=== PATIENT | female | born 1965 | race Caucasian/White ===

== ENCOUNTER 2017-12-24 20:53 | Emergency (ER) | payer SELFPAY ==
[2017-12-24 21:18] LABS: BASOPHILS # (AUTO) 0.1 10^3/uL (0.0-0.1); BASOPHILS % (AUTO) 1.1 %; EOSINOPHILS % (AUTO) 0.2 %; HGB - HEMOGLOBIN 15.6 g/dL (12.0-16.0); LYMPHOCYTES # (AUTO) 2.6 10^3/uL (1.5-3.5); LYMPHOCYTES % (AUTO) 38.8 %; MEAN CORPUSCULAR HEMOGLOBIN 30.6 pg (27.0-31.0); MEAN CORPUSCULAR HGB CONC 33.7 g/dL (32.0-36.0); MEAN CORPUSCULAR VOLUME 90.9 fL (81.0-99.0); MEAN PLATELET VOLUME 8.5 fL (7.9-10.8); MONOCYTES # (AUTO) 0.4 10^3/uL (0.0-1.0); MONOCYTES % (AUTO) 6.2 %; NEUTROPHILS # (AUTO) 3.6 10^3/uL (1.5-6.6); NEUTROPHILS % (AUTO) 53.7 %; PLT - PLATELET COUNT 157 10^3/uL (130-450); RED BLOOD COUNT 5.11 10^6/uL (4.20-5.40); RED CELL DISTRIBUTION WIDTH 13.4 % (12.0-15.0); WHITE BLOOD COUNT 6.7 x10^3/uL (4.8-10.8)
[2017-12-24 21:30] LABS: ALBUMIN 4.3 g/dL (3.2-5.5); ALBUMIN/GLOBULIN RATIO 1.2 (1.0-2.2); BILIRUBIN,TOTAL 0.7 mg/dL (0.2-1.0); CALCIUM 9.4 mg/dL (8.5-10.3); CREATININE 0.5 mg/dL (0.4-1.0)
--- NOTE | 2017-12-24 21:43 | XRAY Report ---
EXAM: CHEST RADIOGRAPHY EXAM DATE: 12/24/2017 09:35 PM. CLINICAL HISTORY: Soa/cough/chest pressure. COMPARISON: None. TECHNIQUE: 2 views. FINDINGS: Lungs/Pleura: No localized infiltrate, consolidation, effusion, or pneumothorax. Mediastinum: Heart and mediastinal contours are unremarkable. Upper lobe vessels not distended. Other: None. IMPRESSION: Normal 2-view chest radiography. [facility] Referring Provider Line: [phone] SITE ID: [id number]
[2017-12-24] MEDS ORDERED: SODIUM CHLORIDE 0.9% 1,000 ML IV STA ×2 (21:57→23:35)
--- NOTE | 2017-12-24 21:57 | ED Physician Documentation ---
History of Present Illness - Stated complaint Stated Complaint: SOA - Chief complaint Chief Complaint: Cardiac - History obtained from History obtained from: Patient - History of Present Illness Timing: Enter time (18:00), Today Pain level now: 0 Improved by: no ameliorating factors Worsened by: no exacerbating factors - Additonal information Additional information: while at dinner this evening, 6 PM, patient had sudden onset of feeling "hot, sweaty" (per patient), dyspneic, and nausea. mild chest discomfort. Symptoms have resolved [employer]. She notes recent right ear piercing which has become red and swollen Review of Systems Constitutional: reports: Sweats. denies: Fever (did not take temperature, but did not feel like she had a fever), Chills Ears: reports: Ear pain (right ear swelling, pain) Throat: denies: Sore throat Respiratory: reports: Dyspnea (resolved). denies: Cough GI: reports: Nausea. denies: Abdominal Pain, Vomiting : denies: Dysuria, Frequency Musculoskeletal: reports: Reviewed and negative PD PAST MEDICAL HISTORY - Past Medical History Past Medical History: No - Past Surgical History Past Surgical History: No - Present Medications Home Medications: Ambulatory Orders Medication Instructions Recorded Confirmed Aspirin 81 mg PO 12/24/17 Multivitamin [Multivitamins] 1 each PO 12/24/17 Clindamycin HCl [Clindamycin 300MG 300 mg PO Q6HR #27 capsule 12/25/17 CAP] metFORMIN [Glucophage] 500 mg PO DAILY #30 tablet 12/25/17 - Allergies Allergies/Adverse Reactions: Allergies Allergy/AdvReac Type Severity Reaction Status Date / Time Sulfa (Sulfonamide Allergy Hives Verified 12/24/17 21:06 Antibiotics) - Living Situation Living Arrangement: reports: At home PD ED PE NORMAL - Vitals Vital signs reviewed: Yes - General General: Alert and oriented X 3, No acute distress, Well developed/nourished - HEENT HEENT: Moist mucous membranes - Neck Neck: Supple, no meningeal sign - Cardiac Cardiac: RRR, No murmur, No gallop, No rub - Respiratory Respiratory: No respiratory distress, Clear bilaterally - Abdomen Abdomen: Soft, Non tender - Derm Derm: Normal color, Warm and dry - Extremities Extremities: No edema - Neuro Neuro: Alert and oriented X 3 Results - Vitals Vitals: Vital Signs - 24 hr 12/24/17 12/25/17 20:59 01:39 Temperature 37.1 C 36.6 C Heart Rate 119 H 93 Respiratory 18 16 Rate Blood Pressure 128/109 H 117/75 O2 Saturation 98 96 Oxygen O2 Source Room air - EKG (time done) No standard instances Rate: Rate (enter#), Tachy (111) Rhythm: Sinus tachycardia [place]: Normal Intervals: Normal [place] QRS: Normal Ischemia: Normal ST segments - Labs Labs: Laboratory Tests 12/24/17 12/24/17 12/24/17 21:12 21:12 21:12 WBC 6.7 RBC 5.11 Hgb 15.6 Hct 46.4 MCV 90.9 MCH 30.6 MCHC 33.7 RDW 13.4 Plt Count 157 MPV 8.5 Neut # 3.6 Lymph # 2.6 [place] # 0.4 Eos # 0.0 Baso # 0.1 Absolute Nucleated RBC 0.00 Nucleated RBC % 0.1 Sodium 132 L Potassium 3.5 Chloride 96 L Carbon Dioxide 25 Anion Gap 11.0 BUN 11 Creatinine 0.5 Estimated GFR (MDRD) 131 Glucose 406 H Glycated Hemoglobin Estim Average Glucose Calcium 9.4 Total Bilirubin 0.7 AST 51 H ALT 48 Alkaline Phosphatase 91 Troponin I < 0.04 Total Protein 8.0 Albumin 4.3 Globulin 3.7 Albumin/Globulin Ratio 1.2 Lipase 37 Urine Color Urine Clarity Urine pH Ur Specific [place] Urine Protein Urine Glucose (UA) Urine Ketones Urine Occult Blood Urine Nitrite Urine Bilirubin Urine Urobilinogen Ur Leukocyte Esterase Ur Microscopic Review Urine Culture Comments Serum Ketones 12/24/17 12/24/17 12/24/17 21:12 21:12 22:05 WBC RBC Hgb Hct MCV MCH MCHC RDW Plt Count MPV Neut # Lymph # [place] # Eos # Baso # Absolute Nucleated RBC Nucleated RBC % Sodium Potassium Chloride Carbon Dioxide Anion Gap BUN Creatinine Estimated GFR (MDRD) Glucose Glycated Hemoglobin 13.1 H Estim Average Glucose 329 H Calcium Total Bilirubin AST ALT Alkaline Phosphatase Troponin I Total Protein Albumin Globulin Albumin/Globulin Ratio Lipase Urine Color STRAW Urine Clarity CLEAR Urine pH 6.5 Ur Specific [place] <=1.005 Urine Protein NEGATIVE Urine Glucose (UA) >=1000 H Urine Ketones NEGATIVE Urine Occult Blood NEGATIVE Urine Nitrite NEGATIVE Urine Bilirubin NEGATIVE Urine Urobilinogen 0.2 (NORMAL) Ur Leukocyte Esterase NEGATIVE Ur Microscopic Review NOT INDICATED Urine Culture Comments NOT INDICATED Serum Ketones NEGATIVE - Rads (name of study) chest xray Radiology: Prelim report reviewed, See rad report PD MEDICAL DECISION MAKING - ED course Complexity details: reviewed results, re-evaluated patient, considered differential, d/w patient Departure - Departure Disposition: 01 Home, Self Care Clinical Impression: Hyperglycemia, Cellulitis of ear Condition: Good Instructions: ED Infec Skin Cellulitis, ED Diet Diabetic, ED Hyperglycemia New Susp Diabetes Follow-Up: [facility] [place] [Provider Group] [facility] [Provider Group] Rosita Carpenter ARNP [Primary Care Provider] - Prescriptions: Clindamycin HCl [Clindamycin 300MG CAP] 300 mg PO Q6HR #27 capsule metFORMIN [Glucophage] 500 mg PO DAILY #30 tablet Discharge Date/Time: 12/25/17 01:40
[2017-12-24] MEDS ORDERED: CLINDAMYCIN 600 MG/50 ML 50 ML IV ONE (22:14)
[2017-12-24 22:18] LABS: BILIRUBIN,URINE NEGATIVE (NEGATIVE); GLUCOSE, URINE (UA) >=1000 mg/dL (NEGATIVE); KETONES,URINE (UA) NEGATIVE (NEGATIVE); LEUKOCYTE ESTERASE, URINE NEGATIVE (NEGATIVE); NITRITE,URINE NEGATIVE (NEGATIVE); OCCULT BLOOD,URINE NEGATIVE (NEGATIVE); PH,URINE 6.5 PH (5.0-7.5); PROTEIN,URINE NEGATIVE (NEGATIVE); UROBILINOGEN,URINE 0.2 (NORMAL) E.U./dL (NORMAL)
[2017-12-24 22:19] LABS: CLARITY,URINE CLEAR (CLEAR)
[2017-12-24 22:28] LABS: HB2 TOTAL 17.3 g/dL; HEMOGLOBIN A1C 2.07 g/dL; HEMOGLOBIN A1C % 13.1 % (4.6-6.2)
[2017-12-24] MEDS ORDERED: INSULIN REGULAR HUMAN 100 UNIT/1 ML 10 ML MDV SUBQ STA (23:35)
[2017-12-25] MEDS ORDERED: metFORMIN 500 MG TABLET PO STA (01:08)
[2017-12-25 01:40] VITALS: BP 117/75
== END 2017-12-25 01:40 | disposition home or self-care (01) ==
LOC: ED 20:53
DX: R73.9 Hyperglycemia, unspecified (principal); H60.11 Cellulitis of right external ear; R07.89 Other chest pain; R06.09 Other forms of dyspnea
CPT/HCPCS: 36415; 71046; 80053; 81003; 82009; 83036; 83690; 84484; 85025; 93005; 96361; 96365; 96372; 99283; 99284; A9270; J1815; 81001; 87086

== ENCOUNTER 2017-12-30 19:47 | Emergency (ER) | payer SELFPAY ==
[2017-12-30 19:57] VITALS: BP 145/94
--- NOTE | 2017-12-30 20:21 | ED Physician Documentation ---
History of Present Illness - Stated complaint Stated Complaint: POSS OD - Chief complaint Chief Complaint: General - History obtained from History obtained from: Patient - History of Present Illness Timing: Other (Fairly new diagnosis of diabetes. She is taking 1 tablet of metformin twice daily and soon will be transitioning to 2 tablets at night but inadvertently took 2 tonight. She has no symptoms per se.) Review of Systems Eyes: denies: Photophobia Ears: denies: Loss of hearing, Ear pain Nose: denies: Rhinorrhea / runny nose, Congestion PD PAST MEDICAL HISTORY - Past Surgical History Past Surgical History: No - Present Medications Home Medications: Ambulatory Orders Medication Instructions Recorded Confirmed Aspirin 81 mg PO 12/24/17 Multivitamin [Multivitamins] 1 each PO 12/24/17 Clindamycin HCl [Clindamycin 300MG 300 mg PO Q6HR #27 capsule 12/25/17 CAP] metFORMIN [Glucophage] 500 mg PO DAILY #30 tablet 12/25/17 - Allergies Allergies/Adverse Reactions: Allergies Allergy/AdvReac Type Severity Reaction Status Date / Time Sulfa (Sulfonamide Allergy Hives Verified 12/30/17 19:57 Antibiotics) - Social History Does the pt smoke?: Yes Does the pt drink ETOH?: Yes Does the pt have substance abuse?: No - Immunizations Immunizations are current?: Yes PD ED PE NORMAL - Vitals Vital signs reviewed: Yes - General General: Alert and oriented X 3, No acute distress - HEENT HEENT: PERRL, EOMI - Neuro Neuro: Alert and oriented X 3, Normal speech Results - Vitals Vitals: Vital Signs - 24 hr 12/30/17 19:50 Temperature 36.3 C L Heart Rate 105 H Respiratory 18 Rate Blood Pressure 145/94 H O2 Saturation 95 Oxygen O2 Source Room air PD MEDICAL DECISION MAKING - ED course ED course: We discussed that with the mechanism of metformin and the dosing range and her current blood sugar she is in no danger of significant hypoglycemia tonight. Departure - Departure Disposition: 01 Home, Self Care Clinical Impression: Medication overdose Qualifiers: Encounter type: initial encounter Injury intent: accidental or unintentional Qualified Code(s): T50.901A - Poisoning by unspecified drugs, medicaments and biological substances, accidental (unintentional), initial encounter Condition: Good Record reviewed to determine appropriate education?: Yes Comments: As discussed, based on the mechanism of metformin and its dosing range you are in no danger having taken 2 pills instead of 1.
== END 2017-12-30 20:26 | disposition home or self-care (01) ==
LOC: ED 19:47
DX: T38.3X1A Poisoning by insulin and oral hypoglycemic [antidiabetic] drugs, accidental (unintentional), initial encounter (principal); E11.9 Type 2 diabetes mellitus without complications; Z79.82 Long term (current) use of aspirin; F17.200 Nicotine dependence, unspecified, uncomplicated
CPT/HCPCS: 99282; 99283

== ENCOUNTER 2018-03-30 10:09 | Outpatient (CLI) | payer OTHER ==
[2018-03-30 18:25] LABS: HB2 TOTAL 16.3 g/dL; HEMOGLOBIN A1C 0.71 g/dL; HEMOGLOBIN A1C % 6.1 % (4.6-6.2)
== END 2018-03-30 10:10 | disposition home or self-care (01) ==
LOC: LAB.F 10:09
PROVIDERS: ATTEND Nurse Practitioner Family
DX: E11.9 Type 2 diabetes mellitus without complications (principal)
CPT/HCPCS: 36415; 83036

== ENCOUNTER 2018-04-15 14:47 | Outpatient (CLI) | payer OTHER ==
--- NOTE | 2018-04-16 14:34 | Mammography Report ---
Procedure Date: 04/15/2018 Accession Number: [id number] / [id number] Procedure: MGS - Screening Mammo Dig Bilat CPT Code: FULL RESULT: EXAM: Screening Mammo Dig Bilat DATE: 04/15/2018 3:03 PM CLINICAL HISTORY: 52-year-old for screening TECHNIQUE: Bilateral CC and MLO views were obtained. COMPARISON: 08/07/2009, 08/10/2008 FINDINGS: The breasts demonstrate scattered fibroglandular densities bilaterally. A few punctate, typically benign calcifications are present. No suspicious masses, clustered microcalcifications, or regions of architectural distortion are identified. IMPRESSION: Benign findings RECOMMENDATION: Routine annual screening unless otherwise clinically indicated. BIRADS CATEGORY 2: Benign findings STANDARD QUALIFYING STATEMENTS: 1. This examination was reviewed with the aid of Computer-Aided Detection (CAD). 2. A negative or benign imaging report should not delay biopsy if clinically suspicious findings are present. Consider surgical consultation if warrented. More than 5% of cancers are not identified by imaging. 3. Dense breasts may obscure an underlying neoplasm.
== END 2018-04-15 14:48 | disposition home or self-care (01) ==
LOC: DI.S 14:47
PROVIDERS: ATTEND Nurse Practitioner Family
DX: Z12.31 Encounter for screening mammogram for malignant neoplasm of breast (principal)
CPT/HCPCS: 77067

== ENCOUNTER 2018-05-31 07:45 | Outpatient (CLI) | payer OTHER ==
[2018-05-31 11:56] LABS: BASOPHILS % (AUTO) 0.2 %; EOSINOPHILS % (AUTO) 0.1 %; HGB - HEMOGLOBIN 14.3 g/dL (12.0-16.0); LYMPHOCYTES # (AUTO) 1.8 10^3/uL (1.5-3.5); LYMPHOCYTES % (AUTO) 26.2 %; MEAN CORPUSCULAR HEMOGLOBIN 31.2 pg (27.0-31.0); MEAN CORPUSCULAR HGB CONC 33.9 g/dL (32.0-36.0); MEAN CORPUSCULAR VOLUME 91.8 fL (81.0-99.0); MEAN PLATELET VOLUME 8.4 fL (7.9-10.8); MONOCYTES # (AUTO) 0.4 10^3/uL (0.0-1.0); MONOCYTES % (AUTO) 5.6 %; NEUTROPHILS # (AUTO) 4.6 10^3/uL (1.5-6.6); NEUTROPHILS % (AUTO) 67.9 %; PLT - PLATELET COUNT 123 10^3/uL (130-450); RED BLOOD COUNT 4.59 10^6/uL (4.20-5.40); RED CELL DISTRIBUTION WIDTH 14.3 % (12.0-15.0); WHITE BLOOD COUNT 6.8 x10^3/uL (4.8-10.8)
[2018-05-31 12:19] LABS: ALBUMIN 3.7 g/dL (3.2-5.5); ALKALINE PHOSPHATASE 73 IU/L (42-121); ALT ALANINE AMINOTRANSFERASE 24 IU/L (10-60); AST ASPARTATE AMINOTRANSFERASE 22 IU/L (10-42); BILIRUBIN,TOTAL 0.7 mg/dL (0.2-1.0); BUN - BLOOD UREA NITROGEN 11 mg/dL (6-20); CALCIUM 9.3 mg/dL (8.5-10.3); CARBON DIOXIDE - CO2 29 mmol/L (21-32); CHLORIDE 101 mmol/L (101-111); CHOL/HDL RATIO 4.9 (<4.4); CHOLESTEROL 185 mg/dL; CREATININE 0.4 mg/dL (0.4-1.0); GFR - MDRD 169 (>89); GLUCOSE 130 mg/dL (70-100); HDL CHOLESTEROL 38 mg/dL; LDL CHOLESTEROL,CALCULATED 111 mg/dL; LDL/HDL RATIO 2.9 (<4.4); SODIUM 138 mmol/L (135-145); TOTAL PROTEIN 7.5 g/dL (6.7-8.2); VLDL CHOLESTEROL 36 mg/dL
== END 2018-05-31 07:46 | disposition home or self-care (01) ==
LOC: LAB.F 07:45
PROVIDERS: ATTEND Nurse Practitioner Family
DX: E11.9 Type 2 diabetes mellitus without complications (principal); Z13.220 Encounter for screening for lipoid disorders
CPT/HCPCS: 36415; 80053; 80061; 82043; 83721; 85025

== ENCOUNTER 2018-11-14 12:58 | Emergency (ER) | payer OTHER ==
[2018-11-14] MEDS ORDERED: HYDROmorphone 1 MG/ML CARPUJECT IVP STA ×4 (13:28→16:04)
[2018-11-14] MEDS ORDERED: ONDANSETRON 4 MG/2 ML VIAL IVP STA ×2 (13:28→16:04)
[2018-11-14] MEDS ORDERED: SODIUM CHLORIDE 0.9% 1,000 ML IV ONE (13:28)
--- NOTE | 2018-11-14 13:31 | ED Physician Documentation ---
PD HPI ABD PAIN - Stated complaint Stated Complaint: CRAMP ON SHOULDER - Chief complaint Chief Complaint: Abd Pain - History obtained from History obtained from: Patient - History of Present Illness Timing - onset: Today (She was awoken at 6 AM by epigastric pain. She describes it as a burning. She also feels it in her back and left shoulder. She is been dry heaving. The pain is severe. She has had milder episodes in the past but never this severe or long-lasting. She thought it was heartburn and she tried a few things for that like Tums and milk which were not helpful. She has no history of abdominal surgeries except for a . She is a smoker and has slightly increased shortness of breath over a chronic baseline.) Review of Systems Ten Systems: 10 systems reviewed and negative Constitutional: denies: Fever, Chills Nose: denies: Rhinorrhea / runny nose, Congestion Cardiac: denies: Chest pain / pressure, Palpitations, Pedal edema, Calf pain Respiratory: reports: Dyspnea. denies: Cough GI: reports: Abdominal Pain, Nausea, Vomiting, Diarrhea (loose/foamy) PD PAST MEDICAL HISTORY - Past Medical History Past Medical History: Yes Endocrine/Autoimmune: Type 2 diabetes : Kidney stones - Past Surgical History Past Surgical History: No - Present Medications Home Medications: Ambulatory Orders Medication Instructions Recorded Confirmed Aspirin 81 mg PO DAILY 12/24/17 01/25/18 Multivitamin [Multivitamins] 1 each PO DAILY 12/24/17 11/14/18 metFORMIN [Glucophage] 500 mg PO DAILY 01/25/18 11/14/18 Metformin HCl 1 tab PO QPM 11/14/18 11/14/18 Omeprazole 20 mg PO DAILY #30 capsule. 11/14/18 Ondansetron Odt [Zofran] 4 mg TL Q6H PRN #10 tablet 11/14/18 Oxycodone HCl/Acetaminophen 1 - 2 each PO Q6H PRN #14 tablet 11/14/18 [Percocet 5-325 mg Tablet] Pravastatin [Pravachol] 1 tab PO DAILY 11/14/18 11/14/18 - Allergies Allergies/Adverse Reactions: Allergies Allergy/AdvReac Type Severity Reaction Status Date / Time Sulfa (Sulfonamide Allergy Hives Verified 11/14/18 13:13 Antibiotics) lactose AdvReac GI Verified 11/14/18 13:13 - Social History Does the pt smoke?: Yes Smoking Status: Current every day smoker Does the pt drink ETOH?: Yes ETOH Use: Other (She occasionally drinks wine and did have a little bit of hard alcohol last night but she says she was not drunk.) Does the pt have substance abuse?: No - Family History Family history: reports: Non contributory - Immunizations Immunizations are current?: Yes PD ED PE NORMAL - Vitals Vital signs reviewed: Yes - General General: Alert and oriented X 3, Other (uncomfortable) - HEENT HEENT: PERRL, EOMI - Neck Neck: Supple, no meningeal sign, No bony TTP - Cardiac Cardiac: RRR, No murmur - Respiratory Respiratory: No respiratory distress, Clear bilaterally - Abdomen Abdomen: Normal bowel sounds, Soft, Other (Mild epigastric tenderness equivalent to right upper quadrant tenderness with negative Puente sign.) - Back Back: No CVA TTP, No spinal TTP - Derm Derm: Normal color, Warm and dry - Extremities Extremities: No edema, No calf tenderness / cord - Neuro Neuro: Alert and oriented X 3, Normal speech - Psych Psych: Normal mood, Normal affect Results - Vitals Vitals: Vital Signs - 24 hr 11/14/18 11/14/18 11/14/18 13:10 13:35 14:44 Temperature 36.8 C Heart Rate 95 80 82 Respiratory 16 18 18 Rate Blood Pressure 152/92 H 154/89 H O2 Saturation 96 96 96 11/14/18 16:19 Temperature Heart Rate 103 H Respiratory 17 Rate Blood Pressure 120/86 H O2 Saturation 96 Oxygen O2 Source Room air - EKG (time done) 1334 Rate: Rate (enter#) (85) Rhythm: NSR [place]: Normal Intervals: Normal [place] QRS: Normal Ischemia: Normal ST segments Computer interpretation: Agree with computer - Labs Labs: Laboratory Tests 11/14/18 11/14/18 11/14/18 13:33 13:33 13:33 WBC 9.2 RBC 4.74 Hgb 14.9 Hct 42.6 MCV 89.8 MCH 31.5 H MCHC 35.1 RDW 13.3 Plt Count 139 MPV 7.5 L Neut # (Auto) 7.3 H Lymph # (Auto) 1.4 L [place] # (Auto) 0.4 Eos # (Auto) 0.0 Baso # (Auto) 0.0 Absolute Nucleated RBC 0.00 Nucleated RBC % 0.0 Sodium 136 Potassium 3.7 Chloride 98 L Carbon Dioxide 28 Anion Gap 10.0 BUN 8 Creatinine 0.4 Estimated GFR (MDRD) 169 Glucose 152 H Calcium 10.4 H Total Bilirubin 0.5 AST 23 ALT 25 Alkaline Phosphatase 73 Troponin I < 0.04 Total Protein 7.7 Albumin 4.2 Globulin 3.5 Albumin/Globulin Ratio 1.2 Lipase 28 11/14/18 16:15 WBC RBC Hgb Hct MCV MCH MCHC RDW Plt Count MPV Neut # (Auto) Lymph # (Auto) [place] # (Auto) Eos # (Auto) Baso # (Auto) Absolute Nucleated RBC Nucleated RBC % Sodium Potassium Chloride Carbon Dioxide Anion Gap BUN Creatinine Estimated GFR (MDRD) Glucose Calcium Total Bilirubin AST ALT Alkaline Phosphatase Troponin I < 0.04 Total Protein Albumin Globulin Albumin/Globulin Ratio Lipase - Rads (name of study) RUQ sono Radiology: EMP read contemporaneously (fatty liver, NAD) CT angio Chest/abd/pelvis Radiology: EMP read contemporaneously (No aneurysm or dissection. She has emphysema and a 0.7 cm cyst in the pancreatic body and occasional diverticula without evidence of diverticulitis.) PD MEDICAL DECISION MAKING - ED course ED course: This is a 52-year-old woman who was awoken from sleep by severe epigastric pain radiating to the back and left shoulder this morning. Examination was most consistent with a biliary etiology but ultrasound was negative for same and labs did not suggest anything there either. We then proceeded to CT angiography of the chest and back given the radiation to the left shoulder and back, this was negative for acute painful etiology but incidental findings including pancreatic cyst and emphysema were shared with the patient and she understands the need to quit smoking in for follow-up. Delta troponins were done in the emergency department as well as an EKG and this was negative for cardiac ischemia. I offered observation in the hospital for continued pain control which she declined and prefers to go home. Departure - Departure Disposition: Home, Self Care Clinical Impression: Abdominal pain Qualifiers: Abdominal location: epigastric Qualified Code(s): R10.13 - Epigastric pain Back pain Qualifiers: Back pain location: thoracic back pain Chronicity: acute Back pain laterality: midline Qualified Code(s): M54.6 - Pain in thoracic spine Condition: Good Record reviewed to determine appropriate education?: Yes Instructions: Abdominal Pain Prescriptions: Omeprazole 20 mg PO DAILY #30 capsule. Ondansetron Odt [Zofran] 4 mg TL Q6H PRN #10 tablet PRN Reason: Nausea / Vomiting Oxycodone HCl/Acetaminophen [Percocet 5-325 mg Tablet] 1 - 2 each PO Q6H PRN #14 tablet PRN Reason: pain Comments: You have a small pancreatic cyst. You need repeat CT or MRI in 12 months to document stability. Return anytime if worse or if new symptoms return or tomorrow if not better.
[2018-11-14 13:42] LABS: BASOPHILS % (AUTO) 0.2 %; HGB - HEMOGLOBIN 14.9 g/dL (12.0-16.0); LYMPHOCYTES # (AUTO) 1.4 10^3/uL (1.5-3.5); LYMPHOCYTES % (AUTO) 15.5 %; MEAN CORPUSCULAR HEMOGLOBIN 31.5 pg (27.0-31.0); MEAN CORPUSCULAR HGB CONC 35.1 g/dL (32.0-36.0); MEAN CORPUSCULAR VOLUME 89.8 fL (81.0-99.0); MEAN PLATELET VOLUME 7.5 fL (7.9-10.8); MONOCYTES # (AUTO) 0.4 10^3/uL (0.0-1.0); MONOCYTES % (AUTO) 4.3 %; NEUTROPHILS # (AUTO) 7.3 10^3/uL (1.5-6.6); PLT - PLATELET COUNT 139 10^3/uL (130-450); RED BLOOD COUNT 4.74 10^6/uL (4.20-5.40); RED CELL DISTRIBUTION WIDTH 13.3 % (12.0-15.0); WHITE BLOOD COUNT 9.2 x10^3/uL (4.8-10.8)
[2018-11-14 13:55] LABS: ALBUMIN 4.2 g/dL (3.2-5.5); ALBUMIN/GLOBULIN RATIO 1.2 (1.0-2.2); BILIRUBIN,TOTAL 0.5 mg/dL (0.2-1.0); CALCIUM 10.4 mg/dL (8.5-10.3); CREATININE 0.4 mg/dL (0.4-1.0); TOTAL PROTEIN 7.7 g/dL (6.7-8.2)
[2018-11-14] MEDS ORDERED: IOVERSOL 320 100 ML VIAL IVP ONE ×2 (14:53→15:39)
--- NOTE | 2018-11-14 14:55 | Ultrasound Report ---
Reason: epigastric/RUQ pain Procedure Date: 11/14/2018 Accession Number: [id number] / [id number] Procedure: US - Abdomen Limited CPT Code: FULL RESULT: EXAM: ABDOMEN ULTRASOUND LIMITED, RUQ EXAM DATE: 11/14/2018 02:10 PM. CLINICAL HISTORY: Epigastric and right upper quadrant pain COMPARISON: 11/30/2008 CT ultrasound 3707. TECHNIQUE: Real-time scanning was performed with static images obtained. FINDINGS: Liver: Liver is hyperechogenic, consistent with fatty infiltration. 18.0 cm. Main portal vein flow: Hepatopetal. Gallbladder: Normal. No stones, wall thickening, or sonographic Puente's sign. Biliary System: CBD measures 6 mm. No intrahepatic or extrahepatic ductal dilatation. Other: The right kidney is 11.3 cm in length. No stones or hydronephrosis. IMPRESSION: Fatty liver. [facility]
[2018-11-14] MEDS ORDERED: LIDOCAINE VISCOUS 2% 15 ML UDC MM STA (15:47)
[2018-11-14] MEDS ORDERED: MAG HYDROX/AL HYDROX/SIMETH 30 ML UDC PO STA (15:47)
--- NOTE | 2018-11-14 16:03 | CT Report ---
Reason: epigastric/chest/back pain Procedure Date: 11/14/2018 Accession Number: [id number] / [id number] Procedure: CT - Abdomen/Pelvis Angio CPT Code: FULL RESULT: EXAM: CT ANGIOGRAM CHEST, ABDOMEN AND PELVIS EXAM DATE: 11/14/2018 03:23 PM. CLINICAL HISTORY: Epigastric/chest/back pain. COMPARISONS: ABDOMEN/PELVIS ANGIO 11/14/2018 3:02 PM ABDOMEN LIMITED 11/14/2018 1:48 PM. TECHNIQUE: Routine axial helical CT angiographic imaging was performed through the chest, abdomen, and pelvis. IV Contrast: opti 320 100mL. Reconstructions: Coronal, sagittal, and 3D MIP reconstructions of the aorta. In accordance with CT protocol optimization, one or more of the following dose reduction techniques were utilized for this exam: automated exposure control, adjustment of mA and/or KV based on patient size, or use of iterative reconstructive technique. FINDINGS: Vascular Structures: Calcified and noncalcified atheromatous disease is present in the thoracic and abdominal aorta. No thoracic aortic aneurysm. Mild atheromatous disease without hemodynamically significant stenosis is present at the origin of the great vessels. No thoracic aortic dissection or mediastinal hematoma. No central pulmonary emboli are noted. No abdominal aortic aneurysm, retroperitoneal hematoma or dissection is noted. Conventional hepatic arterial anatomy. The celiac axis is widely patent. Normal appearance of the splenic artery. Mild atherosclerotic disease at the origin of the JANINE. Otherwise, the JANINE and SMA are widely patent. Diffuse atheromatous disease is also less than 50% multifocal areas of stenosis in the bilateral common iliac, internal and external iliac arteries. Lungs/Pleura: Centrilobular and paraseptal emphysema. No consolidation, effusions or pneumothorax. Dependent atelectasis. Moderate bronchial wall thickening. No endobronchial lesion is noted. Mediastinum: No cardiac enlargement or adenopathy. No pericardial effusion. Patchy coronary artery disease. No central pulmonary emboli. Normal caliber main pulmonary artery. Abdominal Organs: Fatty liver. No mass or intrahepatic bile duct dilatation. Normal gallbladder and common bile duct. Incidental splenic calcifications. Otherwise, the spleen and adrenal glands are normal. 0.7 cm distal pancreatic body low density cyst. No pancreatic ductal dilation, mass, atrophy or calcifications are noted. Atrophic and scarred left kidney. No left renal mass, stone or hydronephrosis. Mild enlargement of the right kidney. No right renal mass stone or hydronephrosis. No ureteral stones are noted. Peritoneal Cavity: No free fluid, free air or adenopathy. No masses or acute inflammatory process. Occasional colonic diverticula. No inflammation. Appendix not seen. No right lower quadrant inflammation is noted. Pelvic Organs: Normal. The bladder and visualized pelvic organs are within normal limits. Bones: No significant abnormality. Other: None. IMPRESSION: 1. No thoracic or abdominal aortic aneurysm or dissection. No mediastinal or retroperitoneal hematoma. 2. Centrilobular and paraseptal emphysema. No acute pulmonary process. 3. No abdominal, pelvic or thoracic adenopathy. 4. Fatty liver. No mass. 5. 0.7 cm cyst in the pancreatic body. No pancreatic mass, atrophy or dilated pancreatic duct. No concerning enhancement features. Recommend follow-up in 12 months to document stability. 6. Occasional diverticula. No inflammation or obstruction. [facility]
[2018-11-14] MEDS ORDERED: PANTOPRAZOLE 40 MG VIAL IVP STA (17:00)
[2018-11-14] MEDS ORDERED: ONDANSETRON ODT 4 MG Prepack 2 TL STA (17:00)
[2018-11-14] MEDS ORDERED: oxyCODONE/ACET 5/325 Prepack 4 PO STA (17:00)
[2018-11-14 17:48] VITALS: BP 155/99
== END 2018-11-14 17:48 | disposition home or self-care (01) ==
LOC: ED 12:58
DX: R10.13 Epigastric pain (principal); R11.2 Nausea with vomiting, unspecified; M54.6 Pain in thoracic spine; M25.512 Pain in left shoulder; K86.2 Cyst of pancreas; K76.0 Fatty (change of) liver, not elsewhere classified; J43.9 Emphysema, unspecified; F17.200 Nicotine dependence, unspecified, uncomplicated; E11.9 Type 2 diabetes mellitus without complications; Z79.84 Long term (current) use of oral hypoglycemic drugs; Z79.82 Long term (current) use of aspirin; Z87.442 Personal history of urinary calculi
CPT/HCPCS: 36415; 71275; 74174; 76705; 80053; 83690; 84484; 85025; 93005; 96361; 96374; 96375; 96376; 99284; A9270; J1170; Q9967

== ENCOUNTER 2018-11-16 12:40 | Inpatient (IN) | payer OTHER ==
[2018-11-16 13:22] LABS: BILIRUBIN,URINE NEGATIVE (NEGATIVE); GLUCOSE, URINE (UA) NEGATIVE (NEGATIVE); KETONES,URINE (UA) NEGATIVE (NEGATIVE); LEUKOCYTE ESTERASE, URINE NEGATIVE (NEGATIVE); NITRITE,URINE NEGATIVE (NEGATIVE); OCCULT BLOOD,URINE SMALL (NEGATIVE); PROTEIN,URINE TRACE mg/dL (NEGATIVE); UROBILINOGEN,URINE 0.2 (NORMAL) E.U./dL (NORMAL)
[2018-11-16 13:33] LABS: CLARITY,URINE CLEAR (CLEAR)
[2018-11-16 13:34] LABS: BACTERIA,URINE Rare /HPF (None Seen); RBC,URINE 0-5 /HPF (0-5); SQUAMOUS EPITHELIAL CELL,UR MANY Squamous (<= Few)
[2018-11-16 13:55] LABS: BASOPHILS # (AUTO) 0.1 10^3/uL (0.0-0.1); BASOPHILS % (AUTO) 0.6 %; EOSINOPHILS % (AUTO) 0.1 %; HGB - HEMOGLOBIN 15.7 g/dL (12.0-16.0); LYMPHOCYTES # (AUTO) 2.5 10^3/uL (1.5-3.5); LYMPHOCYTES % (AUTO) 10.9 %; MEAN CORPUSCULAR HEMOGLOBIN 31.1 pg (27.0-31.0); MEAN CORPUSCULAR HGB CONC 34.2 g/dL (32.0-36.0); MEAN CORPUSCULAR VOLUME 90.9 fL (81.0-99.0); MEAN PLATELET VOLUME 7.5 fL (7.9-10.8); MONOCYTES # (AUTO) 1.1 10^3/uL (0.0-1.0); MONOCYTES % (AUTO) 4.6 %; NEUTROPHILS # (AUTO) 19.3 10^3/uL (1.5-6.6); NEUTROPHILS % (AUTO) 83.8 %; PLT - PLATELET COUNT 155 10^3/uL (130-450); RED BLOOD COUNT 5.05 10^6/uL (4.20-5.40); RED CELL DISTRIBUTION WIDTH 13.8 % (12.0-15.0); WHITE BLOOD COUNT 23.1 x10^3/uL (4.8-10.8)
[2018-11-16 14:04] LABS: ALBUMIN 4.4 g/dL (3.2-5.5); BILIRUBIN,TOTAL 1.1 mg/dL (0.2-1.0); CALCIUM 9.5 mg/dL (8.5-10.3); CREATININE 0.7 mg/dL (0.4-1.0); TOTAL PROTEIN 8.6 g/dL (6.7-8.2)
[2018-11-16] MEDS ORDERED: SODIUM CHLORIDE 0.9% 1,000 ML IV ONE ×2 (14:04)
[2018-11-16] MEDS ORDERED: HYDROmorphone 1 MG/ML CARPUJECT IVP STA ×2 (14:04→14:34)
[2018-11-16] MEDS ORDERED: ONDANSETRON 4 MG/2 ML VIAL IVP STA (14:04)
--- NOTE | 2018-11-16 14:17 | ED Physician Documentation ---
History of Present Illness - Stated complaint Stated Complaint: ABD PX - Chief complaint Chief Complaint: Abd Pain - History obtained from History obtained from: Patient, Family - History of Present Illness Timing: How many days ago (3) Pain level max: 10 Pain level now: 10 - Additonal information Additional information: 52-year-old female presents to the emergency department with abdominal pain that started 2-3 days ago, is gradually been worsening. Now located in the right lower quadrant. Worse with movement and palpation. Better with rest. Took Percocet without relief today. No fevers. Does have decreased appetite. No diarrhea or constipation. States pain is significantly worsened by trying to stand up straight, walk or go over bumps. 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 11/14/18 Ondansetron Odt [Zofran] 4 mg TL Q6H PRN #10 tablet 11/14/18 Oxycodone HCl/Acetaminophen 1 - 2 each PO Q6H PRN #14 tablet 11/14/18 [Percocet 5-325 mg Tablet] Pravastatin [Pravachol] 1 tab PO DAILY 11/14/18 11/14/18 - Allergies Allergies/Adverse Reactions: Allergies Allergy/AdvReac Type Severity Reaction Status Date / Time Sulfa (Sulfonamide Allergy Hives Verified 11/16/18 13:12 Antibiotics) lactose AdvReac GI Verified 11/16/18 13:12 - Social History Does the pt smoke?: Yes Smoking Status: Current every day smoker Does the pt drink ETOH?: Yes Does the pt have substance abuse?: No - Immunizations Immunizations are current?: Yes PD ED PE NORMAL - Vitals Vital signs reviewed: Yes - General General: Alert and oriented X 3, No acute distress, Well developed/nourished - HEENT HEENT: PERRL, Moist mucous membranes - Neck Neck: Supple, no meningeal sign - Cardiac Cardiac: RRR, Strong equal pulses - Respiratory Respiratory: No respiratory distress, Clear bilaterally - Abdomen Abdomen: Soft, Other (Tender palpation right lower quadrant. Positive Rovsing, obturator and psoas signs. Positive heel tap) - Back Back: No spinal TTP - Derm Derm: Warm and dry - Extremities Extremities: No edema, No calf tenderness / cord - Neuro Neuro: Alert and oriented X 3 - Psych Psych: Normal mood, Normal affect Results - Vitals Vitals: Vital Signs - 24 hr 11/16/18 11/16/18 11/16/18 13:07 13:42 14:00 Temperature 37 C Heart Rate 138 H 126 H 115 H Respiratory 18 18 20 Rate Blood Pressure 134/85 H 113/91 H 115/86 H O2 Saturation 96 94 97 11/16/18 11/16/18 11/16/18 14:44 14:53 15:02 Temperature 37.5 C Heart Rate 113 H 111 H 111 H Respiratory 15 14 Rate Blood Pressure 115/77 108/69 O2 Saturation 97 98 99 11/16/18 11/16/18 15:32 16:00 Temperature Heart Rate 113 H 113 H Respiratory 18 21 Rate Blood Pressure 102/73 108/69 O2 Saturation 94 96 Oxygen O2 Source Room air - Labs Labs: Laboratory Tests 11/16/18 11/16/18 11/16/18 13:15 13:43 13:43 WBC 23.1 H RBC 5.05 Hgb 15.7 Hct 45.8 MCV 90.9 MCH 31.1 H MCHC 34.2 RDW 13.8 Plt Count 155 MPV 7.5 L Neut # (Auto) 19.3 H Lymph # (Auto) 2.5 Preble # (Auto) 1.1 H Eos # (Auto) 0.0 Baso # (Auto) 0.1 Absolute Nucleated RBC 0.00 Nucleated RBC % 0.0 Manual Slide Review Indicated WBC Morphology NORMAL APPEARANCE Platelet Estimate NORMAL (130-450,000) Platelet Morphology NORMAL APPEARANCE RBC Morph Micro Appear NORMAL APPEARANCE Sodium 132 L Potassium 3.3 L Chloride 92 L Carbon Dioxide 28 Anion Gap 12.0 BUN 9 Creatinine 0.7 Estimated GFR (MDRD) 89 Glucose 139 H Calcium 9.5 Total Bilirubin 1.1 H AST 19 ALT 18 Alkaline Phosphatase 77 Total Protein 8.6 H Albumin 4.4 Globulin 4.2 Albumin/Globulin Ratio 1.0 Lipase 27 Urine Color YELLOW Urine Clarity CLEAR Urine pH 7.0 Ur Specific [place] 1.010 Urine Protein TRACE Urine Glucose (UA) NEGATIVE Urine Ketones NEGATIVE Urine Occult Blood SMALL H Urine Nitrite NEGATIVE Urine Bilirubin NEGATIVE Urine Urobilinogen 0.2 (NORMAL) Ur Leukocyte Esterase NEGATIVE Urine RBC 0-5 Urine WBC 0-3 Ur Squamous Epith Cells MANY Squamous H Urine Bacteria Rare Ur Microscopic Review INDICATED Urine Culture Comments NOT INDICATED PD MEDICAL DECISION MAKING - ED course Complexity details: reviewed results, re-evaluated patient, considered differential, d/w patient, d/w clinical operations consultant ED course: 52-year-old female presents the emergency department right lower quadrant abdominal pain. Exam is consistent with a possible perforated appendicitis. She had a CT scan 2 days ago, I contacted Dr. Redmond who agreed to take patient to the operating room. We will not repeat a CT scan at this time. Zosyn given. Pain well controlled. This document was made in part using voice recognition software. While efforts are made to proofread this document, sound alike and grammatical errors may occur. Departure - Departure Disposition: ED Transfer to [facility] Clinical Impression: Appendicitis Qualifiers: Appendicitis type: acute appendicitis Acute appendicitis type: unspecified acute appendicitis type Qualified Code(s): K35.80 - Unspecified acute appendicitis Condition: Good Discharge Date/Time: 11/16/18 16:58
[2018-11-16 14:19] LABS: PLATELET ESTIMATE, MANUAL NORMAL (130-450,000) (NORMAL); PLATELET MORPHOLOGY NORMAL APPEARANCE (NORMAL); RBC MORPHOLOGY (MULTIPLE) NORMAL APPEARANCE (NORMAL)
[2018-11-16] MEDS ORDERED: PIPERACILLIN/TAZOBACTAM 3.375 GM in SODIUM CHLORIDE 0.9% MINIBAG 100 ML IV STA (14:34)
[2018-11-16] MEDS ORDERED: BUPIVACAINE 0.25%-EPI 1:200000 PF 30 ML VIAL ONE (14:53)
[2018-11-16] MEDS ORDERED: ACETAMINOPHEN 1,000 MG/100 ML 100 ML IV STA (14:56)
[2018-11-16] MEDS ORDERED: fentaNYL 100 MCG/2 ML VIAL IVP STA ×2 (15:20→16:38)
--- NOTE | 2018-11-16 16:26 | CONSULTATION NOTE ---
Referring Provider Name of Referring Provider:: Dr. Kaplan Consult Date: 11/16/18 Chief Complaint - Chief Complaint Chief Complaint: abd pain History of Present Illness - Admitted From Admitted From:: ER - History Obtained From Records Reviewed: yes History obtained from: pt, records Exam Limitations: none - History of Present Illness HPI Comment/Other: 52 yo female with 4 day hx of constant, steady epigastric and periumbilical abd pain associated with Nausea and retching, without fever, chills, change in bowel habits, melena, hematochezia, hematuria, dysuria. No prior similar sx, no one else in the household with similar sx, no unusual oral intake. Was seen in ER 2 days ago where evaluation included labs and CT of chest/abd/pelvis all interpreted as nl. She has a hx of GERD and was thought to be suffering from PUD or exacerbation of gerd and sent home on analgesics and PPI therapy. Her pain subsequently localized to the RLQ, became more severe and was exacerbated by activity, was not controlled with narcotics or PPI therapy so she represented to the ER today. Review of the CT from 11/14 shows an abnormally thickened appendix associated with a high riding cecum, confirmed by Dr. Abad, today's attending radiologist. Surgical consultation was requested. Pt is postmenopausal, with no abnormal vaginal d/c or bleeding. She has a hx of nephrolithiasis, but none was noted on CT scan. She has a recent dx of DM and has noted a 15# wt loss over the past year associated with change in her diet. No prior lower gi evaluations. Neg Fh GI tumors. 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 - Substance History Use: Uses substance without health or social issues: Tobacco, Alcohol Tobacco Details: Cigarettes (/ PPD) Meds/Allgy - Home Medications Home Medications: Ambulatory Orders Medication Instructions Recorded Confirmed Aspirin 81 mg PO DAILY 12/24/17 11/16/18 Multivitamin [Multivitamins] 1 each PO DAILY 12/24/17 11/14/18 metFORMIN [Glucophage] 500 mg PO DAILY 01/25/18 11/14/18 Metformin HCl 1 tab PO QPM 11/14/18 11/14/18 Omeprazole 20 mg PO DAILY #30 capsule. 11/14/18 Ondansetron Odt [Zofran] 4 mg TL Q6H PRN #10 tablet 11/14/18 Oxycodone HCl/Acetaminophen 1 - 2 each PO Q6H PRN #14 tablet 11/14/18 [Percocet 5-325 mg Tablet] Pravastatin [Pravachol] 1 tab PO DAILY 11/14/18 11/14/18 - Allergies Allergies/Adverse Reactions: Allergies Allergy/AdvReac Type Severity Reaction Status Date / Time Sulfa (Sulfonamide Allergy Hives Verified 11/16/18 13:12 Antibiotics) lactose AdvReac GI Verified 11/16/18 13:12 Review of Systems - Constitutional Constitutional: reports: Poor appetite, Weight loss. denies: Fever, Chills - Cardiovascular Cariovascular: denies: Chest pain - Respiratory Respiratory: denies: Cough - Gastrointestinal Gastrointestinal: reports: Abdominal pain, Nausea, Vomiting, Reflux/heartburn, Poor appetite. denies: Constipation, Diarrhea, Change in bowel habits, Rectal bleeding, Black stools, Bloody stools, Carlos Eduardo blood emesis, Coffee grounds emesis - Genitourinary Genitourinary: reports: Flank pain. denies: Dysuria, Frequency, Urgency, Hematuria - Hematologic/Lymphatic Hematologic/Lymphatic: denies: Bruising, Blood clots, Bleeding tendencies - All Other Systems All Other Systems: reports: Reviewed and negative Exam - Vital Signs Reviewed Vital Signs: Yes Vital Signs: Vital Signs x48h Temp Pulse Resp BP Pulse Ox 11/16/18 16:00 113 H 21 108/69 96 11/16/18 15:32 113 H 18 102/73 94 11/16/18 15:02 111 H 14 108/69 99 11/16/18 14:53 37.5 C 111 H 98 11/16/18 14:44 113 H 15 115/77 97 11/16/18 14:00 115 H 20 115/86 H 97 11/16/18 13:42 37 C 126 H 18 113/91 H 94 11/16/18 13:07 138 H 18 134/85 H 96 - Physical Exam General Appearance: positive: Alert, Moderate distress Eyes Bilateral: positive: Normal inspection, Conjunctivae nml, No scleral icterus ENT: positive: ENT inspection nml, Pharynx nml, No signs of dehydration Neck: positive: Thyroid nml, No JVD, Trachea midline. negative: Lymphadenopathy (R), Lymphadenopathy (L) Respiratory: positive: Chest non-tender, No respiratory distress, Breath sounds nml. negative: Wheezes, Rales, Rhonchi Cardiovascular: positive: Regular rate & rhythm, No murmur, No gallop Peripheral Pulses: positive: 2+ Abdomen: positive: No organomegaly, Nml bowel sounds, No distention, Tenderness (diffuse tenderness, guarding, and rebound in RUQ, LLQ, and maximal in RLQ; + Rovsings), Guarding, Rebound. negative: Hepatomegaly, Splenomegaly, Mass Skin: positive: Color nml, No rash, Warm, Dry Extremities: positive: Nml appearance, No pedal edema. negative: Calf tenderness Neurologic/Psychiatric: positive: Oriented x3 Conclusion/Plan - Diagnosis Diagnosis: Acute surgical abdomen, likely due to complicated appendicitis, less likely would be other problem such as industrial services worker pathology, meckel's, right side diverticulitis, IBD, etc not seen on CT scan. - Plan Plan: Begin broad spectrum antibiotic therapy, IVF, then to OR today for laparoscopic appendectomy. PAR conference with pt and , and consent obtained. - Lab Results Lab results reviewed: Yes Fish Bones: 11/16/18 13:43 11/16/18 13:43 - Diagnostic Imaging Results Diagnostic Imaging Results: positive: Final report reviewed, Read independently Diagnostic Imaging Results Comments: See HPI
--- NOTE | 2018-11-16 16:47 | ANESTHESIA ---
Pre-Anesthesia VS, & Labs - Diagnosis Diagnosis Acute surgical abdomen, likely due to complicated appendicitis, less likely would be other problem such as saw runner pathology, meckel's, right side diverticulitis, IBD, etc not seen on CT scan. - Procedure laparoscopic appendectomy Vital Signs: Temp Pulse Resp BP Pulse Ox 37.5 C 113 H 21 108/69 96 11/16/18 14:53 11/16/18 16:00 11/16/18 16:00 11/16/18 16:00 11/16/18 16:00 Height 4 ft 11 in Weight (kg) 63.503 kg Body Mass Index 28.3 - NPO Other (1130am today) - Is Patient ?: Waiver signed - Lab Results Current Lab Results: Laboratory Tests 11/16/18 13:43: Sodium 132 L, Potassium 3.3 L, Chloride 92 L, Carbon Dioxide 28, Anion Gap 12.0, BUN 9, Creatinine 0.7, Estimated GFR (MDRD) 89, Glucose 139 H, Calcium 9.5, Total Bilirubin 1.1 H, AST 19, ALT 18, Alkaline Phosphatase 77, Total Protein 8.6 H, Albumin 4.4, Globulin 4.2, Albumin/Globulin Ratio 1.0, Lipase 27 11/16/18 13:43: WBC 23.1 H, RBC 5.05, Hgb 15.7, Hct 45.8, MCV 90.9, MCH 31.1 H, MCHC 34.2, RDW 13.8, Plt Count 155, MPV 7.5 L, Neut # (Auto) 19.3 H, Lymph # (Auto) 2.5, Faulkner # (Auto) 1.1 H, Eos # (Auto) 0.0, Baso # (Auto) 0.1, Absolute Nucleated RBC 0.00, Nucleated RBC % 0.0, Manual Slide Review Indicated, WBC Morphology NORMAL APPEARANCE, Platelet Estimate NORMAL (130-450,000), Platelet Morphology NORMAL APPEARANCE, RBC Morph Micro Appear NORMAL APPEARANCE Lab results reviewed: Yes Fish Bones: 11/16/18 13:43 11/16/18 13:43 Home Medications and Allergies Active Medications Sodium Chloride (Normal Saline 0.9%) 1,000 mls @ 150 mls/hr IV .Q6H40M ONE Stop: 11/16/18 20:43 Last Admin: 11/16/18 14:14 Dose: 150 mls/hr Aspirin 81 mg PO DAILY 12/24/17 Multivitamin [Multivitamins] 1 each PO DAILY 12/24/17 metFORMIN [Glucophage] 500 mg PO DAILY 01/25/18 Metformin HCl 1 tab PO QPM 11/14/18 Pravastatin [Pravachol] 1 tab PO DAILY 11/14/18 Allergies/Adverse Reactions: Allergies Allergy/AdvReac Type Severity Reaction Status Date / Time Sulfa (Sulfonamide Allergy Hives Verified 11/16/18 13:12 Antibiotics) lactose AdvReac GI Verified 11/16/18 13:12 Anes History & Medical History - Anesthetic History Anesthesia Complications: reports: No previous complications Family history of Anesthesia Complications: Denies Family history of Malignant Hyperthermia: Denies - Medical History Cardiovascular: reports: High cholesterol Gastrointestinal: reports: GERD Urinary: reports: Kidney stones Endocrine/Autoimmune: reports: Type 2 diabetes Smoking Status: Current every day smoker - Surgical History Urologic: Ureterolithotomy (stones) Gynecologic: section, Other (ureteral stents, lithotripsy, TU removal of kidney stones) Exam General: Alert Dental: Dentures full Upper Mouth Openin Fingerbreadth Neck Mobility: Normal Mallampati classification: II Thyromental Distance: greater than 6 cm Respiratory: Lungs clear, Normal breath sounds, No respiratory distress, No accessory muscle use Cardiovascular: Regular rate, Normal S1, Normal S2, No murmurs Mental/Cognitive Status: Alert/Oriented X3, Normal for patient Cognitive Status: Within normal limits Plan Anesthesia Type: General Consent for Procedure(s) Verified and Reviewed: Yes Code Status: Attempt Resuscitation ASA classification: 2-Mild systemic disease Is this case an emergency?: Yes
[2018-11-16] MEDS ORDERED: LACTATED RINGERS 500 ML IV ONE (16:50)
[2018-11-16] MEDS ORDERED: LACTATED RINGERS 1,000 ML IV ONE ×2 (17:03→17:46)
[2018-11-16] MEDS ORDERED: BUPIVACAINE 0.25%-EPI 1:200000 PF 30 ML VIAL SUBQ ONE ×2 (17:25)
[2018-11-16] MEDS ORDERED: KETOROLAC 30 MG/ML VIAL IVP PRN (18:28)
[2018-11-16] MEDS ORDERED: ONDANSETRON 4 MG/2 ML VIAL IVP PRN (18:28)
[2018-11-16] MEDS ORDERED: PROPOFOL 200 MG/20 ML VIAL IVP ONE (18:31)
[2018-11-16] MEDS ORDERED: GLYCOPYRROLATE 1 MG/5 ML VIAL IVP ONE (18:31)
[2018-11-16] MEDS ORDERED: MIDAZOLAM 2 MG/2 ML VIAL IVP ONE (18:31)
[2018-11-16] MEDS ORDERED: NEOSTIGMINE 1 MG/1 ML 10 ML MDV IVP ONE (18:31)
[2018-11-16] MEDS ORDERED: KETOROLAC 30 MG/ML VIAL IVP ONE (18:31)
[2018-11-16] MEDS ORDERED: fentaNYL 250 MCG/5 ML VIAL IVP ONE (18:31)
[2018-11-16] MEDS ORDERED: SUCCINYLCHOLINE 200 MG/10 ML VIAL IVP ONE (18:31)
[2018-11-16] MEDS ORDERED: LIDOCAINE-MPF 2% 5 ML VIAL IM ONE (18:31)
[2018-11-16] MEDS ORDERED: ROCURONIUM 50 MG/5 ML VIAL IVP ONE (18:31)
[2018-11-16] MEDS ORDERED: ONDANSETRON 4 MG/2 ML VIAL IVP ONE (18:31)
--- NOTE | 2018-11-16 18:48 | OPERATIVE REPORT ---
Operative Report - General Procedure Date: 11/16/18 Planned Procedure: lap appy Pre-Op Diagnosis: complicated appendicitis Procedure Performed: laparoscopic appendectomy Post Op Diagnosis: perforated appendicitis with localized peritonitis and abscess - Procedure Note Primary Surgeon: Rivas Redmond MD [facility] Secondary Surgeon: none Anesthesia Provider: Bhavya Dorantes CRNA Anesthesia Technique: General ET tube Pathology: necrotic perforated appendix IV Fluids (mL): 1,500 Estimated Blood Loss (mL): 10 Urine Output (mL): 300 Drain/Tube Type: Kishor drain (in RLQ) Complications: None - Other Other Information/Narrative: After informed consent pt was taken to the OR and placed under general endotracheal anesthesia. A straight cath was performed draining 300 ml of clear urine. Her abdomen was prepped with Chloroprep and draped in the usual sterile fashion. A transverse incision was made inferior to the umbilicus and carried down through the layers of the abdominal wall until the peritoneum was entered sharply. A 12 mm Hasan cannula was inserted and pneumoperitoneum achieved with carbon dioxide. A 10 mm 30 degree Angelika telescope was inserted and laparoscopy carried out with the findings of a necrotic appendix in the RLQ with surrounding fibrin exudate and periappendiceal abscess formation. The visualized portions of the remaining large and small bowel, liver, stomach, and gallbladder, uterus and right ovary appeared normal. 2 5 mm ports were placed in the lower midline and LLQ. Instruments were passed and the appendix was mobilized to the cecal base which appeared viable. The mesentery was divided with the Ligasure device. A 45 mm linear cutting stapling device was used to ligate and divide the appendix at its junction with the cecal base. The appendix was placed in an organ retrieval bag and sent to pathology. Sample of the periappendiceal abscess material was sent for gm stain and culture, aerobic and anaerobic. The abdominal cavity was irrigated with 2 liters of saline containing 1 gm of cefoxitin/liter. After hemostasis was assured a #15 round Kishor drain was placed in the RLQ and made to exit the lower midline port site, was secured to the skin with 3-0 nylon and connected to bulb suction. Instruments and remaining cannulas were removed and wounds were closed with 0-Vicryl to close the midline fascia at the umbilicus and 4-0 Monocryl for the 2 remaining skin incisions, followed by DermaBond. Anesthesia was terminated and patient transferred to the PACU in satisfactory c ondition. Sponge and needle counts were correct x 2.
[2018-11-16] MEDS: fentaNYL 100 MCG/2 ML VIAL ONE ×2 (18:58→19:07)
[2018-11-16] MEDS: PANTOPRAZOLE 40 MG VIAL IVP SCH (19:36)
[2018-11-16] MEDS: SODIUM CHLORIDE FLUSH 0.9% 10 ML SYRINGE IVP PRN ×2 (19:37→22:55)
[2018-11-16] MEDS: ACETAMINOPHEN 1,000 MG/100 ML 100 ML IV SCH (19:37)
[2018-11-16] MEDS: LACTATED RINGERS 1,000 ML IV SCH ×2 (19:38→21:43)
[2018-11-16] MEDS: PIPERACILLIN/TAZOBACTAM 3.375 GM in SODIUM CHLORIDE 0.9% MINIBAG 100 ML IV SCH (20:05)
[2018-11-16] MEDS: oxyCODONE 5 MG TABLET PO PRN (20:58)
[2018-11-16] MEDS: MORPHINE 2 MG/ML CARPUJECT IVP PRN (22:55)
[2018-11-16] MEDS: SODIUM CHLORIDE FLUSH 0.9% 10 ML SYRINGE IVP SCH (23:39)
[2018-11-17] MEDS: SODIUM CHLORIDE FLUSH 0.9% 10 ML SYRINGE IVP SCH ×2 (01:08→16:51)
[2018-11-17] MEDS: MORPHINE 2 MG/ML CARPUJECT IVP PRN ×8 (01:08→21:58)
[2018-11-17] MEDS: ACETAMINOPHEN 1,000 MG/100 ML 100 ML IV SCH ×4 (01:11→19:46)
[2018-11-17] MEDS: PIPERACILLIN/TAZOBACTAM 3.375 GM in SODIUM CHLORIDE 0.9% MINIBAG 100 ML IV SCH ×4 (02:04→20:31)
[2018-11-17] MEDS: SODIUM CHLORIDE FLUSH 0.9% 10 ML SYRINGE IVP PRN ×3 (04:31→06:49)
[2018-11-17 05:34] LABS: BASOPHILS % (AUTO) 0.2 %; EOSINOPHILS % (AUTO) 0.1 %; HGB - HEMOGLOBIN 12.6 g/dL (12.0-16.0); LYMPHOCYTES # (AUTO) 1.2 10^3/uL (1.5-3.5); LYMPHOCYTES % (AUTO) 13.1 %; MEAN CORPUSCULAR VOLUME 93.9 fL (81.0-99.0); MEAN PLATELET VOLUME 7.4 fL (7.9-10.8); MONOCYTES # (AUTO) 0.4 10^3/uL (0.0-1.0); MONOCYTES % (AUTO) 4.3 %; NEUTROPHILS # (AUTO) 7.4 10^3/uL (1.5-6.6); NEUTROPHILS % (AUTO) 82.3 %; PLT - PLATELET COUNT 108 10^3/uL (130-450); RED BLOOD COUNT 4.08 10^6/uL (4.20-5.40); RED CELL DISTRIBUTION WIDTH 14.1 % (12.0-15.0)
[2018-11-17 05:44] LABS: ALBUMIN 2.8 g/dL (3.2-5.5); ALBUMIN/GLOBULIN RATIO 0.9 (1.0-2.2); BILIRUBIN,TOTAL 0.9 mg/dL (0.2-1.0); CALCIUM 7.9 mg/dL (8.5-10.3); CREATININE 0.7 mg/dL (0.4-1.0)
[2018-11-17] MEDS: LACTATED RINGERS 1,000 ML IV SCH (06:14)
[2018-11-17] MEDS: PANTOPRAZOLE 40 MG VIAL IVP SCH (06:16)
[2018-11-17] MEDS ORDERED: LACTATED RINGERS 1,000 ML IV SCH ×2 (06:59→16:18)
[2018-11-17] MEDS: KETOROLAC 30 MG/ML VIAL IVP SCH ×3 (08:27→19:46)
[2018-11-17] MEDS: oxyCODONE 5 MG TABLET PO PRN ×4 (08:33→20:30)
[2018-11-17] MEDS: ENOXAPARIN 40 MG/0.4 ML SYRINGE SUBQ SCH (08:34)
[2018-11-17] MEDS ORDERED: GI COCKTAIL 120 ML BOTTLE PO PRN (10:24)
[2018-11-17] MEDS ORDERED: MORPHINE 2 MG/ML CARPUJECT IVP PRN (10:48)
[2018-11-17] MEDS: LACTULOSE 10 GM /15 ML UDC PO SCH (11:17)
[2018-11-17] MEDS: LORazepam 2 MG/ML VIAL IVP PRN ×3 (11:18→21:57)
[2018-11-17] MEDS: NICOTINE 7 MG PATCH TOP SCH (11:18)
--- NOTE | 2018-11-17 16:40 | CONSULTATION NOTE ---
Referring Provider Name of Referring Provider:: Rivas Redmond Consult Date: 11/17/18 Chief Complaint - Chief Complaint Chief Complaint: chest pain, diabetes management History of Present Illness - Admitted From Admitted From:: ED - History Obtained From Records Reviewed: yes History obtained from: chart review, patient, her Exam Limitations: none - History of Present Illness HPI Comment/Other: Devora Tao is a 52-year old female with a past medical history of hypertension, hyperlipidemia, newly diagnosed diabetes mellitus type 2, fatty liver on imaging, pancreatic cyst, GERD, tobacco dependence, chronic back pain and sinusitis. She is now status post a laproscopic appendectomy that was performed by Dr. Rivas Redmond in which a necrotic organ was removed, an estimated 1500ml blood loss, and a post op drain. We are consulting to assist with the patient's chronic diseases including blood sugar management, evaluation of chest pain and to facilitate appropriate follow up with her PCP. On my exam, the patient's who appears much older than 52 years, was at the bedside during our visit. The patient admits to abdominal pain that begins at her mid-naval and extends straight upward and at times reaches her left clavicle area. She denies previous heart attacks, but states that she has been seen for similar pain in the past that turned out to be acid reflux pain. She also admits to not moving her bowel for at least 4 days. On my review of systems, she denies headaches, blurred vision, changes in her hearing, swollen glands, dizziness, syncope, sleep apnea, heart arrhythmias, palpitations, a new cough, shortness of breath, rashes, bleeding, dysuria, joint soreness, recent falls or trauma, or insomnia. She states she has chronic post nasal drip that causes her a chronic cough, runny nose and throat that has been unchanged for several years. She states that her pain is so overwhelming today and she thinks the chest pain is related to her surgery. She did appear uncomfortable for most of her exam. My impression was relayed to her of a few things that may help are to resolve her constipation, checking an EKG, and prescribe Lorazepam to help with her back and belly pain, but not more narcotics as she is already constipated. She was told of her EKG results as showing no evidence of a heart attack, and we will continue to hold her Metformin in the event of an emergent CT scan. The Metformin can be replaced with a low dose of Lantus, SSI, and resume her diet to carb controlled when the time is right as per surgery. Thank you for this consult. 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 Social History Notes: The patient lives independently with her . She denies the use of ilicit drugs, admits to marijuana and occasional alcohol use. She admits to smoking from age 15-currently. She wishes to be a FULL code. - Substance History Use: Uses substance without health or social issues: Tobacco, Alcohol Use Issues: Anxiety Disorder Abuse: Recurrent use of substance despite neg consequences: NONE Dependence: Experiences withdrawal or developed tolerances: NONE Tobacco Details: Cigarettes (1/2 PPD- from age 15 years-currently) - POLST Patient has POLST: No POLST Status: Full Code Meds/Allgy - Home Medications Home Medications: Ambulatory Orders Medication Instructions Recorded Confirmed Omeprazole 20 mg PO DAILY #30 capsule. 11/14/18 11/17/18 Ondansetron Odt [Zofran] 4 mg TL Q6H PRN #10 tablet 11/14/18 11/17/18 Pravastatin [Pravachol] 20 mg PO DAILY 11/14/18 11/17/18 Apple Cider Vinegar 2 tab PO BID 11/17/18 11/17/18 Biotin 5 mg PO DAILY 11/17/18 11/17/18 Cholecalciferol (Vitamin D3) 1,000 unit PO DAILY 11/17/18 11/17/18 [Vitamin D3] L.acid/L.casei/B.bif/B.kirti/Fos 1 cap PO DAILY 11/17/18 11/17/18 [Probiotic Blend Capsule] Metformin HCl [Metformin HCl ER] 1,000 mg PO QPM 11/17/18 11/17/18 Metformin HCl [Metformin HCl ER] 500 mg PO DAILY 11/17/18 11/17/18 Multivit-Min/Iron/Folic/Lutein 1 tab PO DAILY 11/17/18 11/17/18 [Multivitamin Women 50 Plus Tab] Oxycodone HCl/Acetaminophen 1 - 2 tab PO Q6H PRN 11/17/18 11/17/18 [Percocet 5-325 mg Tablet] Potassium Citrate [Urocit-K] 10 meq PO DAILY 11/17/18 11/17/18 Senna [Senokot] 8.6 mg PO PRN PRN 11/17/18 11/17/18 - Allergies Allergies/Adverse Reactions: Allergies Allergy/AdvReac Type Severity Reaction Status Date / Time Sulfa (Sulfonamide Allergy Hives Verified 11/16/18 13:12 Antibiotics) lactose AdvReac GI Verified 11/16/18 13:12 Review of Systems - Constitutional Constitutional: reports: Fatigue, Poor appetite, Weight loss - Eyes Eyes: reports: Corrective lenses (reading glasses) - Ears, Nose & Throat Ears, Nose & Throat: reports: Postnasal drainage (chronic sinusitis), Dentures (uppers) - Cardiovascular Cariovascular: reports: Chest pain (acute post op), Decr. exercise tolerance - Respiratory Respiratory: reports: Cough (chronic AM cough), Snoring, SOB with exertion - Gastrointestinal Gastrointestinal: reports: Abdominal pain, Abdominal distention (worses since surgery, always has a "big belly"), Constipation, Change in bowel habits, Nausea, Reflux/heartburn, Poor appetite - Musculoskeletal Musculoskeletal: reports: Back pain - Integumentary Integumentary: reports: Dryness - Neurological Neurological: reports: Headache, Pre-existing deficit - Psychiatric Psychiatric: reports: Depression - Hematologic/Lymphatic Hematologic/Lymphatic: reports: Recurrent infections - All Other Systems All Other Systems: reports: Reviewed and negative Exam - Vital Signs Reviewed Vital Signs: Yes Vital Signs: Vital Signs x48h Temp Pulse Resp BP Pulse Ox 11/17/18 16:15 37.6 C H 115 H 18 92/50 L 94 11/17/18 11:25 36.8 C 105 H 17 91/62 96 - Physical Exam General Appearance: positive: Alert, Moderate distress, Anxious Eyes Bilateral: positive: PERRL ENT: positive: Pharynx nml, No signs of dehydration Neck: positive: Thyroid nml, No JVD, Trachea midline Respiratory: positive: Other (diminished, mild shortness of breath.). negative: Wheezes, Rales, Rhonchi Cardiovascular: positive: Regular rate & rhythm, No gallop, Systolic murmur Peripheral Pulses: positive: 2+ Abdomen: positive: Tenderness, Guarding, Abnml bowel sounds, Other (rounded, full, soft. Post-op surgical site.) Extremities: positive: Non-tender, Full ROM, Nml appearance, Pedal edema (trace, dependent edema to BLEs) Neurologic/Psychiatric: positive: Oriented x3, CN's nml (2-12), Motor nml, Sensation nml, Depressed mood/affect Reflexes: Bicep (R): 3+, Bicep (L): 3+ Conclusion/Plan - Diagnosis Diagnosis: Diabetes mellitus type 2- on oral meds, diet controlled. Constipa tion- no stool in ~4 days. Chest pain- ruled out as not cardiac in nature. post op pain- avoid narcotics per surgeon. Status post appendectomy- no s/s of infection - Plan Plan: Add SSI, mealtime blood sugar checks GI cocktail, PRN for chest pain/GERD Lactulose daily to prevent complications from constipation EKG was completed, negative troponin-both negative We will follow through out to monitor patient for effectiveness of blood sugar control, symptom management and communication/teaching to patient regarding chronic diseases. - Lab Results Lab results reviewed: Yes Fish Bones: 11/17/18 05:15 11/17/18 05:15 - Diagnostic Imaging Results Diagnostic Imaging Results: positive: Final report reviewed - EKG Results EKG Interpreted Independently: Yes EKG Comparison: No prior EKG EKG Findings: SR - Other Other Results/Comments: Attestation: This patient is expected to be discharged within 96 hours, or transferred to another facility.
[2018-11-17] MEDS: INSULIN ASPART 300 UNIT/3 ML PEN SUBQ SCH ×2 (17:09→20:15)
[2018-11-17] MEDS: PANTOPRAZOLE 40 MG TABLET PO SCH (19:47)
[2018-11-17] MEDS: SENNA 8.6 MG TABLET PO PRN (20:30)
[2018-11-18] MEDS: KETOROLAC 30 MG/ML VIAL IVP SCH ×2 (02:44→18:19)
[2018-11-18] MEDS: ACETAMINOPHEN 1,000 MG/100 ML 100 ML IV SCH ×2 (02:44→20:11)
[2018-11-18] MEDS: SODIUM CHLORIDE FLUSH 0.9% 10 ML SYRINGE IVP SCH ×4 (02:46→16:07)
[2018-11-18] MEDS: SODIUM CHLORIDE FLUSH 0.9% 10 ML SYRINGE IVP PRN (02:46)
[2018-11-18] MEDS: PIPERACILLIN/TAZOBACTAM 3.375 GM in SODIUM CHLORIDE 0.9% MINIBAG 100 ML IV SCH ×4 (03:14→20:49)
[2018-11-18 05:10] LABS: BASOPHILS % (AUTO) 0.1 %; HGB - HEMOGLOBIN 11.8 g/dL (12.0-16.0); LYMPHOCYTES # (AUTO) 0.6 10^3/uL (1.5-3.5); LYMPHOCYTES % (AUTO) 6.2 %; MEAN CORPUSCULAR HEMOGLOBIN 30.6 pg (27.0-31.0); MEAN CORPUSCULAR HGB CONC 32.9 g/dL (32.0-36.0); MEAN CORPUSCULAR VOLUME 93.1 fL (81.0-99.0); MEAN PLATELET VOLUME 7.5 fL (7.9-10.8); MONOCYTES # (AUTO) 0.7 10^3/uL (0.0-1.0); MONOCYTES % (AUTO) 7.3 %; NEUTROPHILS # (AUTO) 8.2 10^3/uL (1.5-6.6); NEUTROPHILS % (AUTO) 86.4 %; PLT - PLATELET COUNT 122 10^3/uL (130-450); RED BLOOD COUNT 3.86 10^6/uL (4.20-5.40); RED CELL DISTRIBUTION WIDTH 13.7 % (12.0-15.0); WHITE BLOOD COUNT 9.5 x10^3/uL (4.8-10.8)
[2018-11-18 05:20] LABS: ALBUMIN 2.7 g/dL (3.2-5.5); ALBUMIN/GLOBULIN RATIO 0.8 (1.0-2.2); CALCIUM 8.1 mg/dL (8.5-10.3); CREATININE 0.6 mg/dL (0.4-1.0); MAGNESIUM 1.5 mg/dL (1.7-2.8); TOTAL PROTEIN 6.2 g/dL (6.7-8.2)
[2018-11-18 05:30] LABS: HB2 TOTAL 12.2 g/dL; HEMOGLOBIN A1C 0.55 g/dL; HEMOGLOBIN A1C % 6.3 % (4.6-6.2)
[2018-11-18] MEDS: oxyCODONE 5 MG TABLET PO PRN ×3 (05:32→14:30)
[2018-11-18] MEDS: PANTOPRAZOLE 40 MG TABLET PO SCH (06:19)
[2018-11-18] MEDS: SENNA 8.6 MG TABLET PO PRN (06:19)
[2018-11-18] MEDS: MORPHINE 2 MG/ML CARPUJECT IVP PRN (06:20)
--- NOTE | 2018-11-18 07:32 | PROVIDER PROGRESS NOTE ---
Subjective - General Admit Date: 11/16/18 Procedure Date: 11/16/18 Post Op Days: 2 Procedure Performed: lap appy - Review of Systems Wound/Incisions: positive: Healing well, Dressing dry and intact, Drainage (serosanguinous) Drain Type: Kishor Drain Output Description: serosanguinous Approximate mls Output: 170/yesterday General: positive: No symptoms Pulmonary: positive: Pleuritic chest pain Gastrointestinal: positive: Abdominal pain (improving), Flatus, Constipation. negative: Nausea, Vomiting, Difficulty swallowing, Diarrhea Genitourinary: positive: No symptoms Musculoskeletal: positive: No symptoms Psychiatric: positive: Anxiety (very anxious at times) - Other Other Information/Narrative: feeling better, abd pain slowly improving but still requiring IV morphine for breakthrough pain. tolerating clear liquids well. starting to ambulate; voiding well; no bm for 3 days. Objective - Patient Data Reviewed Vital Signs: Yes Vital Signs: Vital Signs x48h Temp Pulse Resp BP Pulse Ox 11/18/18 00:49 37.2 C 107 H 16 103/62 93 Weight: Weight 11/16/18 11/17/18 11/18/18 23:59 23:59 23:59 Weight (kg) 70 kg Intake & Output: Intake and Output Totals x24h 11/16/18 11/17/18 11/18/18 23:59 23:59 23:59 Intake Total 2555.417 5386 550 Output Total 220 1795 20 Balance 2335.417 3591 530 - Lab Results Lab Results: 11/18/18 04:55 11/18/18 04:55 Other Lab Results: Lab Results x24hrs 11/18/18 11/18/18 11/18/18 Range/Units 06:41 04:55 04:55 WBC (4.8-10.8) x10^3/uL RBC (4.20-5.40) 10^6/uL Hgb (12.0-16.0) g/dL Hct (37.0-47.0) % MCV (81.0-99.0) fL MCH (27.0-31.0) pg MCHC (32.0-36.0) g/dL RDW (12.0-15.0) % Plt Count (130-450) 10^3/uL MPV (7.9-10.8) fL Neut # (Auto) (1.5-6.6) 10^3/uL Lymph # (Auto) (1.5-3.5) 10^3/uL [place] # (Auto) (0.0-1.0) 10^3/uL Eos # (Auto) (0.0-0.7) 10^3/uL Baso # (Auto) (0.0-0.1) 10^3/uL Absolute Nucleated RBC x10^3/uL Nucleated RBC % /100WBC Sodium 132 L (135-145) mmol/L Potassium 3.0 L (3.5-5.0) mmol/L Chloride 101 (101-111) mmol/L Carbon Dioxide 22 (21-32) mmol/L Anion Gap 9.0 (6-13) BUN 8 (6-20) mg/dL Creatinine 0.6 (0.4-1.0) mg/dL Estimated GFR (MDRD) 106 (>89) Glucose 148 H (70-100) mg/dL POC Whole Bld Glucose 129 H (70 - 100) mg/dL Glycated Hemoglobin 6.3 H (4.6-6.2) % Estim Average Glucose 134 H (70-100) Calcium 8.1 L (8.5-10.3) mg/dL Magnesium 1.5 L (1.7-2.8) mg/dL Total Bilirubin 1.0 (0.2-1.0) mg/dL AST 16 (10-42) IU/L ALT 13 (10-60) IU/L Alkaline Phosphatase 55 (42-121) IU/L Troponin I (<0.49) ng/mL Total Protein 6.2 L (6.7-8.2) g/dL Albumin 2.7 L (3.2-5.5) g/dL Globulin 3.5 (2.1-4.2) g/dL Albumin/Globulin Ratio 0.8 L (1.0-2.2) 11/18/18 11/17/18 11/17/18 Range/Units 04:55 20:13 16:41 WBC 9.5 (4.8-10.8) x10^3/uL RBC 3.86 L (4.20-5.40) 10^6/uL Hgb 11.8 L (12.0-16.0) g/dL Hct 35.9 L (37.0-47.0) % MCV 93.1 (81.0-99.0) fL MCH 30.6 (27.0-31.0) pg MCHC 32.9 (32.0-36.0) g/dL RDW 13.7 (12.0-15.0) % Plt Count 122 L (130-450) 10^3/uL MPV 7.5 L (7.9-10.8) fL Neut # (Auto) 8.2 H (1.5-6.6) 10^3/uL Lymph # (Auto) 0.6 L (1.5-3.5) 10^3/uL [place] # (Auto) 0.7 (0.0-1.0) 10^3/uL Eos # (Auto) 0.0 (0.0-0.7) 10^3/uL Baso # (Auto) 0.0 (0.0-0.1) 10^3/uL Absolute Nucleated RBC 0.00 x10^3/uL Nucleated RBC % 0.0 /100WBC Sodium (135-145) mmol/L Potassium (3.5-5.0) mmol/L Chloride (101-111) mmol/L Carbon Dioxide (21-32) mmol/L Anion Gap (6-13) BUN (6-20) mg/dL Creatinine (0.4-1.0) mg/dL Estimated GFR (MDRD) (>89) Glucose (70-100) mg/dL POC Whole Bld Glucose 125 H 130 H (70 - 100) mg/dL Glycated Hemoglobin (4.6-6.2) % Estim Average Glucose (70-100) Calcium (8.5-10.3) mg/dL Magnesium (1.7-2.8) mg/dL Total Bilirubin (0.2-1.0) mg/dL AST (10-42) IU/L ALT (10-60) IU/L Alkaline Phosphatase (42-121) IU/L Troponin I (<0.49) ng/mL Total Protein (6.7-8.2) g/dL Albumin (3.2-5.5) g/dL Globulin (2.1-4.2) g/dL Albumin/Globulin Ratio (1.0-2.2) 11/17/18 11/17/18 Range/Units 11:21 05:15 WBC (4.8-10.8) x10^3/uL RBC (4.20-5.40) 10^6/uL Hgb (12.0-16.0) g/dL Hct (37.0-47.0) % MCV (81.0-99.0) fL MCH (27.0-31.0) pg MCHC (32.0-36.0) g/dL RDW (12.0-15.0) % Plt Count (130-450) 10^3/uL MPV (7.9-10.8) fL Neut # (Auto) (1.5-6.6) 10^3/uL Lymph # (Auto) (1.5-3.5) 10^3/uL [place] # (Auto) (0.0-1.0) 10^3/uL Eos # (Auto) (0.0-0.7) 10^3/uL Baso # (Auto) (0.0-0.1) 10^3/uL Absolute Nucleated RBC x10^3/uL Nucleated RBC % /100WBC Sodium (135-145) mmol/L Potassium (3.5-5.0) mmol/L Chloride (101-111) mmol/L Carbon Dioxide (21-32) mmol/L Anion Gap (6-13) BUN (6-20) mg/dL Creatinine (0.4-1.0) mg/dL Estimated GFR (MDRD) (>89) Glucose (70-100) mg/dL POC Whole Bld Glucose 129 H (70 - 100) mg/dL Glycated Hemoglobin (4.6-6.2) % Estim Average Glucose (70-100) Calcium (8.5-10.3) mg/dL Magnesium (1.7-2.8) mg/dL Total Bilirubin (0.2-1.0) mg/dL AST (10-42) IU/L ALT (10-60) IU/L Alkaline Phosphatase (42-121) IU/L Troponin I < 0.04 (<0.49) ng/mL Total Protein (6.7-8.2) g/dL Albumin (3.2-5.5) g/dL Globulin (2.1-4.2) g/dL Albumin/Globulin Ratio (1.0-2.2) - Current Medications Current Medications: Current Medications Generic Name Dose Route Start Last Admin Trade Name Freq PRN Reason Stop Dose Admin Enoxaparin Sodium 40 mg 11/17/18 09:00 11/17/18 08:34 Lovenox SUBQ 40 mg DAILY RADHA Administration Piperacillin Sod/Tazobactam 100 mls @ 200 mls/hr 11/16/18 20:00 11/18/18 03:59 Sod 3.375 gm/ Sodium Chloride IV Infused Q6H [facility] Infusion Insulin Aspart 1 - 5 unit 11/17/18 17:00 11/17/18 20:15 Novolog SUBQ Not Given 0800,1200,1700,2100 [facility] Protocol Lactulose 10 gm 11/17/18 11:00 11/17/18 11:17 Enulose PO 10 gm DAILY RADHA Administration Lorazepam 0.5 mg 11/17/18 10:48 11/17/18 21:57 Ativan Inj (Vial) IVP 0.5 mg Q2H PRN Administration Anxiety Morphine Sulfate 2 mg 11/17/18 10:54 11/18/18 06:20 Morphine (Carpuject) IVP 2 mg Q3HR PRN Administration PAIN Nicotine 1 patch 11/17/18 11:00 11/17/18 11:18 Nicoderm TOP Not Given DAILY [facility] Pantoprazole Sodium 40 mg 11/17/18 19:00 11/18/18 06:19 Protonix PO 40 mg QDAC RADHA Administration Senna 8.6 mg 11/17/18 10:49 11/18/18 06:19 Senokot PO 8.6 mg PRN PRN Administration Constipation Sodium Chloride 10 ml 11/17/18 01:00 11/18/18 02:46 Normal Saline Flush 0.9% IVP 10 ml 0100,0900,1700 RADHA Administration Sodium Chloride 10 ml 11/16/18 18:28 11/18/18 02:46 Normal Saline Flush 0.9% IVP 10 ml PRN PRN Administration NEEDED PER PROVIDER ORDERS - Physical Exam Wound/Incisions: positive: Healing well, Dressing dry and intact General Appearance: positive: Mild distress Eyes Bilateral: positive: Normal inspection ENT: positive: ENT inspection nml Neck: positive: Nml inspection, No JVD. negative: Lymphadenopathy (R), Lymphadenopathy (L) Respiratory: positive: Chest non-tender, No respiratory distress, Rales (faint bibasilar) Cardiovascular: positive: Regular rate & rhythm, No murmur, No gallop Abdomen: positive: Tenderness (mild diffuse, improving), Abnml bowel sounds (hypoactive) Skin: positive: No rash, Warm, Dry. negative: Cyanosis Extremities: positive: Non-tender, No pedal edema. negative: Calf tenderness Neurologic/Psychiatric: positive: Oriented x3 ABX Reporting Has patient been on IV antibiotics over the past 48 hours?: Yes Impression/Plan - Problem List Problem List: Doing well PO Day #2; Plan: transition to oral analgesics, advance diet as tolerated. increase activity, home tomorrow if continues to improve.
[2018-11-18] MEDS ORDERED: SODIUM CHLORIDE FLUSH 0.9% 10 ML SYRINGE ONE (08:18)
[2018-11-18] MEDS ORDERED: MAGNESIUM CITRATE 296 ML BOTTLE PO SCH (08:19)
--- NOTE | 2018-11-18 08:27 | PROVIDER PROGRESS NOTE ---
Subjective - Prog Note Date Prog Note Date: 11/17/18 Prog Note Time: 07:00 (late entry) - Subjective Pt reports feeling: Improved (c/o abd pain but improved from preop; no N/V; hungry, no bm yet. c/o chest pain worse with deep inspiration) Objective - Vital Signs/Intake & Output Reviewed Vital Signs: Yes Vital Signs: Vital Signs x48h Temp Pulse Resp BP Pulse Ox 11/18/18 00:49 37.2 C 107 H 16 103/62 93 Intake & Output: Intake & Output 11/15/18 11/16/18 11/17/18 11/18/18 23:59 23:59 23:59 23:59 Intake Total 2555.417 5386 550 Output Total 220 1795 20 Balance 2335.417 3591 530 - Objective General Appearance: positive: Alert, Moderate distress (c/o abd pain) Eyes Bilateral: positive: Normal inspection ENT: positive: ENT inspection nml, No signs of dehydration Neck: positive: Nml inspection, No JVD Respiratory: positive: Chest non-tender, No respiratory distress, Breath sounds nml Cardiovascular: positive: Regular rate & rhythm, No murmur, No gallop Abdomen: positive: Tenderness (mod diffuse tenderness max RLQ), Guarding, Abnml bowel sounds (hypoactive) Skin: positive: Color nml, No rash, Warm, Dry. negative: Cyanosis Extremities: positive: Non-tender, No pedal edema. negative: Calf tenderness Neurologic/Psychiatric: positive: Oriented x3 - Lab Results Fish Bones: 11/18/18 04:55 11/18/18 04:55 Other Labs: Lab Results x24hrs 11/18/18 11/18/18 11/18/18 Range/Units 06:41 04:55 04:55 WBC (4.8-10.8) x10^3/uL RBC (4.20-5.40) 10^6/uL Hgb (12.0-16.0) g/dL Hct (37.0-47.0) % MCV (81.0-99.0) fL MCH (27.0-31.0) pg MCHC (32.0-36.0) g/dL RDW (12.0-15.0) % Plt Count (130-450) 10^3/uL MPV (7.9-10.8) fL Neut # (Auto) (1.5-6.6) 10^3/uL Lymph # (Auto) (1.5-3.5) 10^3/uL Wood # (Auto) (0.0-1.0) 10^3/uL Eos # (Auto) (0.0-0.7) 10^3/uL Baso # (Auto) (0.0-0.1) 10^3/uL Absolute Nucleated RBC x10^3/uL Nucleated RBC % /100WBC Sodium 132 L (135-145) mmol/L Potassium 3.0 L (3.5-5.0) mmol/L Chloride 101 (101-111) mmol/L Carbon Dioxide 22 (21-32) mmol/L Anion Gap 9.0 (6-13) BUN 8 (6-20) mg/dL Creatinine 0.6 (0.4-1.0) mg/dL Estimated GFR (MDRD) 106 (>89) Glucose 148 H (70-100) mg/dL POC Whole Bld Glucose 129 H (70 - 100) mg/dL Glycated Hemoglobin 6.3 H (4.6-6.2) % Estim Average Glucose 134 H (70-100) Calcium 8.1 L (8.5-10.3) mg/dL Magnesium 1.5 L (1.7-2.8) mg/dL Total Bilirubin 1.0 (0.2-1.0) mg/dL AST 16 (10-42) IU/L ALT 13 (10-60) IU/L Alkaline Phosphatase 55 (42-121) IU/L Troponin I (<0.49) ng/mL Total Protein 6.2 L (6.7-8.2) g/dL Albumin 2.7 L (3.2-5.5) g/dL Globulin 3.5 (2.1-4.2) g/dL Albumin/Globulin Ratio 0.8 L (1.0-2.2) 11/18/18 11/17/18 11/17/18 Range/Units 04:55 20:13 16:41 WBC 9.5 (4.8-10.8) x10^3/uL RBC 3.86 L (4.20-5.40) 10^6/uL Hgb 11.8 L (12.0-16.0) g/dL Hct 35.9 L (37.0-47.0) % MCV 93.1 (81.0-99.0) fL MCH 30.6 (27.0-31.0) pg MCHC 32.9 (32.0-36.0) g/dL RDW 13.7 (12.0-15.0) % Plt Count 122 L (130-450) 10^3/uL MPV 7.5 L (7.9-10.8) fL Neut # (Auto) 8.2 H (1.5-6.6) 10^3/uL Lymph # (Auto) 0.6 L (1.5-3.5) 10^3/uL [place] # (Auto) 0.7 (0.0-1.0) 10^3/uL Eos # (Auto) 0.0 (0.0-0.7) 10^3/uL Baso # (Auto) 0.0 (0.0-0.1) 10^3/uL Absolute Nucleated RBC 0.00 x10^3/uL Nucleated RBC % 0.0 /100WBC Sodium (135-145) mmol/L Potassium (3.5-5.0) mmol/L Chloride (101-111) mmol/L Carbon Dioxide (21-32) mmol/L Anion Gap (6-13) BUN (6-20) mg/dL Creatinine (0.4-1.0) mg/dL Estimated GFR (MDRD) (>89) Glucose (70-100) mg/dL POC Whole Bld Glucose 125 H 130 H (70 - 100) mg/dL Glycated Hemoglobin (4.6-6.2) % Estim Average Glucose (70-100) Calcium (8.5-10.3) mg/dL Magnesium (1.7-2.8) mg/dL Total Bilirubin (0.2-1.0) mg/dL AST (10-42) IU/L ALT (10-60) IU/L Alkaline Phosphatase (42-121) IU/L Troponin I (<0.49) ng/mL Total Protein (6.7-8.2) g/dL Albumin (3.2-5.5) g/dL Globulin (2.1-4.2) g/dL Albumin/Globulin Ratio (1.0-2.2) 11/17/18 11/17/18 Range/Units 11:21 05:15 WBC (4.8-10.8) x10^3/uL RBC (4.20-5.40) 10^6/uL Hgb (12.0-16.0) g/dL Hct (37.0-47.0) % MCV (81.0-99.0) fL MCH (27.0-31.0) pg MCHC (32.0-36.0) g/dL RDW (12.0-15.0) % Plt Count (130-450) 10^3/uL MPV (7.9-10.8) fL Neut # (Auto) (1.5-6.6) 10^3/uL Lymph # (Auto) (1.5-3.5) 10^3/uL Wood # (Auto) (0.0-1.0) 10^3/uL Eos # (Auto) (0.0-0.7) 10^3/uL Baso # (Auto) (0.0-0.1) 10^3/uL Absolute Nucleated RBC x10^3/uL Nucleated RBC % /100WBC Sodium (135-145) mmol/L Potassium (3.5-5.0) mmol/L Chloride (101-111) mmol/L Carbon Dioxide (21-32) mmol/L Anion Gap (6-13) BUN (6-20) mg/dL Creatinine (0.4-1.0) mg/dL Estimated GFR (MDRD) (>89) Glucose (70-100) mg/dL POC Whole Bld Glucose 129 H (70 - 100) mg/dL Glycated Hemoglobin (4.6-6.2) % Estim Average Glucose (70-100) Calcium (8.5-10.3) mg/dL Magnesium (1.7-2.8) mg/dL Total Bilirubin (0.2-1.0) mg/dL AST (10-42) IU/L ALT (10-60) IU/L Alkaline Phosphatase (42-121) IU/L Troponin I < 0.04 (<0.49) ng/mL Total Protein (6.7-8.2) g/dL Albumin (3.2-5.5) g/dL Globulin (2.1-4.2) g/dL Albumin/Globulin Ratio (1.0-2.2) ABX Reporting Has patient been on IV antibiotics over the past 48 hours?: No Assessment/Plan - Problem List (1) Appendicitis Impression: Doing well PO Day 1. Plan: start clear liq diet, OOB, incentive spirometry; hospitalist consult for assistance with management of diabetes., etc Qualifiers: Appendicitis type: acute appendicitis Acute appendicitis type: with localized peritonitis Appendicitis gangrene presence: with gangrene Appendicitis perforation presence: with perforation Appendicitis abscess presence: with abscess Qualified Code(s): K35.31 - Acute appendicitis with localized peritonitis and gangrene, without perforation; K35.33 - Acute appendicitis with perforation and localized peritonitis, with abscess
[2018-11-18] MEDS: IBUPROFEN 600 MG TABLET PO SCH ×2 (08:58→12:14)
[2018-11-18] MEDS: ACETAMINOPHEN 325 MG TABLET PO SCH ×2 (08:58→14:30)
[2018-11-18] MEDS ORDERED: POLYETHYLENE GLYCOL 3350 17 GM PACKET PO SCH (09:00)
[2018-11-18] MEDS: INSULIN ASPART 300 UNIT/3 ML PEN SUBQ SCH ×4 (09:03→21:06)
[2018-11-18] MEDS: LACTULOSE 10 GM /15 ML UDC PO SCH (09:03)
[2018-11-18] MEDS: ENOXAPARIN 40 MG/0.4 ML SYRINGE SUBQ SCH (09:04)
[2018-11-18] MEDS: NICOTINE 7 MG PATCH TOP SCH (09:04)
[2018-11-18] MEDS ORDERED: PROCHLORPERAZINE INJ 10 MG in SODIUM CHLORIDE 0.9% 50 ML IV ONE (10:51)
[2018-11-18] MEDS: LORazepam 2 MG/ML VIAL IVP PRN ×3 (11:03→22:21)
[2018-11-18] MEDS ORDERED: GLYCERIN ADULT SUPP PR ONE (11:09)
[2018-11-18] MEDS ORDERED: PROCHLORPERAZINE 10 MG/2 ML VIAL IVP ONE (11:30)
[2018-11-18] MEDS ORDERED: SODIUM CHLORIDE 0.9% 1,000 ML IV SCH (13:00)
--- NOTE | 2018-11-18 15:03 | XRAY Report ---
Reason: postoop N/V Procedure Date: 11/18/2018 Accession Number: [id number] / [id number] Procedure: XR - Abdomen 2 View X-Ray CPT Code: 36189 FULL RESULT: EXAM: ABDOMEN RADIOGRAPHY EXAM DATE: 11/18/2018 02:45 PM. CLINICAL HISTORY: Post-op. Nausea and vomiting. COMPARISON: None. TECHNIQUE: 2 views. FINDINGS: Lung Bases: Unremarkable. Bowel Gas Pattern: Multiple small bowel air-fluid levels are most compatible with ileus in the postoperative setting. Gas and bowel content are also seen in the large bowel in the right hemiabdomen. Free Air: Visualization of the diaphragmatic gertrude is suggestive of a small amount of free air underneath the diaphragms, not unexpected in the postoperative state. Other: There is right basilar consolidation, atelectasis versus aspiration. Tubing seen projecting over the right pelvis, partially imaged. This should be correlated to expected findings and hardware external to the patient and possibly represents a surgical drain. IMPRESSION: Ileus. Right basilar consolidation, recommend postoperative pulmonary toilet. RADIA
[2018-11-18] MEDS ORDERED: METHYLNALTREXONE 12 MG/0.6 ML VIAL SUBQ ONE (16:15)
[2018-11-18] MEDS: NS W/20 MEQ KCL 1,000 ML IV SCH (16:45)
[2018-11-18] MEDS: PANTOPRAZOLE 40 MG VIAL IVP SCH (16:49)
--- NOTE | 2018-11-18 17:34 | XRAY Report ---
Reason: NG tube placement Procedure Date: 11/18/2018 Accession Number: [id number] / [id number] Procedure: XR - Chest 1 View X-Ray CPT Code: 62503 FULL RESULT: EXAM: CHEST RADIOGRAPHY EXAM DATE: 11/18/2018 04:50 PM. CLINICAL HISTORY: NG tube placement. COMPARISON: CHEST 2 VIEW 12/24/2017 9:22 PM. TECHNIQUE: 1 view. FINDINGS AND IMPRESSION: Lungs/Pleura: New mild left base airspace disease. No pleural effusion or pneumothorax. Mediastinum: Within exam limitations, the cardiomediastinal contour is normal. Other: Tip of the nasogastric tube is in the body of the stomach. RADIA
--- NOTE | 2018-11-18 19:31 | PROVIDER PROGRESS NOTE ---
Subjective - Prog Note Date Prog Note Date: 11/18/18 Prog Note Time: 12:00 - Subjective Pt reports feeling: No change Subjective: Devora complains of ongoing abdominal swelling, no bowel movements, and continues to have chest pressure since being post op. She denies increased shortness breath, a new cough, a rash, bleeding, flatus or dizziness. Objective - Vital Signs/Intake & Output Reviewed Vital Signs: Yes Vital Signs: Vital Signs x48h Temp Pulse Resp BP Pulse Ox 11/18/18 15:41 37.2 C 120 H 24 132/82 H 92 Intake & Output: Intake & Output 11/15/18 11/16/18 11/17/18 11/18/18 23:59 23:59 23:59 23:59 Intake Total 2555.417 5386 1577.221 Output Total 220 1795 1570 Balance 2335.417 3591 7.221 - Objective General Appearance: positive: Alert, Mild distress, Anxious Eyes Bilateral: positive: PERRL ENT: positive: Pharynx nml, Dry mucous membranes Neck: positive: Thyroid nml, No JVD Respiratory: positive: Chest non-tender, No respiratory distress Cardiovascular: positive: Regular rate & rhythm, No gallop, Systolic murmur Peripheral Pulses: 2+ Radial (R), 2+ Radial (L) Abdomen: positive: Tenderness, Guarding, Hepatomegaly, Abnml bowel sounds, Other (post op navel and low abdomen sites do not have s/s of infection) Back: positive: Nml inspection Skin: positive: No rash, Warm, Dry, Other (bronze) Extremities: positive: Non-tender, Full ROM, No pedal edema Neurologic/Psychiatric: positive: Oriented x3, CN's nml (2-12), Motor nml, Sensation nml, Depressed mood/affect, Other (anxious) Reflexes: Bicep (R): 3+, Bicep (L): 3+ - Lab Results Fish Bones: 11/19/18 05:40 11/19/18 05:40 Other Labs: Lab Results x24hrs 11/18/18 11/18/18 11/18/18 Range/Units 16:32 11:19 06:41 WBC (4.8-10.8) x10^3/uL RBC (4.20-5.40) 10^6/uL Hgb (12.0-16.0) g/dL Hct (37.0-47.0) % MCV (81.0-99.0) fL MCH (27.0-31.0) pg MCHC (32.0-36.0) g/dL RDW (12.0-15.0) % Plt Count (130-450) 10^3/uL MPV (7.9-10.8) fL Neut # (Auto) (1.5-6.6) 10^3/uL Lymph # (Auto) (1.5-3.5) 10^3/uL [place] # (Auto) (0.0-1.0) 10^3/uL Eos # (Auto) (0.0-0.7) 10^3/uL Baso # (Auto) (0.0-0.1) 10^3/uL Absolute Nucleated RBC x10^3/uL Nucleated RBC % /100WBC Sodium (135-145) mmol/L Potassium (3.5-5.0) mmol/L Chloride (101-111) mmol/L Carbon Dioxide (21-32) mmol/L Anion Gap (6-13) BUN (6-20) mg/dL Creatinine (0.4-1.0) mg/dL Estimated GFR (MDRD) (>89) Glucose (70-100) mg/dL POC Whole Bld Glucose 151 H 155 H 129 H (70 - 100) mg/dL Glycated Hemoglobin (4.6-6.2) % Estim Average Glucose (70-100) Calcium (8.5-10.3) mg/dL Magnesium (1.7-2.8) mg/dL Total Bilirubin (0.2-1.0) mg/dL AST (10-42) IU/L ALT (10-60) IU/L Alkaline Phosphatase (42-121) IU/L Total Protein (6.7-8.2) g/dL Albumin (3.2-5.5) g/dL Globulin (2.1-4.2) g/dL Albumin/Globulin Ratio (1.0-2.2) 11/18/18 11/18/18 11/18/18 Range/Units 04:55 04:55 04:55 WBC 9.5 (4.8-10.8) x10^3/uL RBC 3.86 L (4.20-5.40) 10^6/uL Hgb 11.8 L (12.0-16.0) g/dL Hct 35.9 L (37.0-47.0) % MCV 93.1 (81.0-99.0) fL MCH 30.6 (27.0-31.0) pg MCHC 32.9 (32.0-36.0) g/dL RDW 13.7 (12.0-15.0) % Plt Count 122 L (130-450) 10^3/uL MPV 7.5 L (7.9-10.8) fL Neut # (Auto) 8.2 H (1.5-6.6) 10^3/uL Lymph # (Auto) 0.6 L (1.5-3.5) 10^3/uL [place] # (Auto) 0.7 (0.0-1.0) 10^3/uL Eos # (Auto) 0.0 (0.0-0.7) 10^3/uL Baso # (Auto) 0.0 (0.0-0.1) 10^3/uL Absolute Nucleated RBC 0.00 x10^3/uL Nucleated RBC % 0.0 /100WBC Sodium 132 L (135-145) mmol/L Potassium 3.0 L (3.5-5.0) mmol/L Chloride 101 (101-111) mmol/L Carbon Dioxide 22 (21-32) mmol/L Anion Gap 9.0 (6-13) BUN 8 (6-20) mg/dL Creatinine 0.6 (0.4-1.0) mg/dL Estimated GFR (MDRD) 106 (>89) Glucose 148 H (70-100) mg/dL POC Whole Bld Glucose (70 - 100) mg/dL Glycated Hemoglobin 6.3 H (4.6-6.2) % Estim Average Glucose 134 H (70-100) Calcium 8.1 L (8.5-10.3) mg/dL Magnesium 1.5 L (1.7-2.8) mg/dL Total Bilirubin 1.0 (0.2-1.0) mg/dL AST 16 (10-42) IU/L ALT 13 (10-60) IU/L Alkaline Phosphatase 55 (42-121) IU/L Total Protein 6.2 L (6.7-8.2) g/dL Albumin 2.7 L (3.2-5.5) g/dL Globulin 3.5 (2.1-4.2) g/dL Albumin/Globulin Ratio 0.8 L (1.0-2.2) 11/17/18 Range/Units 20:13 WBC (4.8-10.8) x10^3/uL RBC (4.20-5.40) 10^6/uL Hgb (12.0-16.0) g/dL Hct (37.0-47.0) % MCV (81.0-99.0) fL MCH (27.0-31.0) pg MCHC (32.0-36.0) g/dL RDW (12.0-15.0) % Plt Count (130-450) 10^3/uL MPV (7.9-10.8) fL Neut # (Auto) (1.5-6.6) 10^3/uL Lymph # (Auto) (1.5-3.5) 10^3/uL [place] # (Auto) (0.0-1.0) 10^3/uL Eos # (Auto) (0.0-0.7) 10^3/uL Baso # (Auto) (0.0-0.1) 10^3/uL Absolute Nucleated RBC x10^3/uL Nucleated RBC % /100WBC Sodium (135-145) mmol/L Potassium (3.5-5.0) mmol/L Chloride (101-111) mmol/L Carbon Dioxide (21-32) mmol/L Anion Gap (6-13) BUN (6-20) mg/dL Creatinine (0.4-1.0) mg/dL Estimated GFR (MDRD) (>89) Glucose (70-100) mg/dL POC Whole Bld Glucose 125 H (70 - 100) mg/dL Glycated Hemoglobin (4.6-6.2) % Estim Average Glucose (70-100) Calcium (8.5-10.3) mg/dL Magnesium (1.7-2.8) mg/dL Total Bilirubin (0.2-1.0) mg/dL AST (10-42) IU/L ALT (10-60) IU/L Alkaline Phosphatase (42-121) IU/L Total Protein (6.7-8.2) g/dL Albumin (3.2-5.5) g/dL Globulin (2.1-4.2) g/dL Albumin/Globulin Ratio (1.0-2.2) ABX Reporting Has patient been on IV antibiotics over the past 48 hours?: Yes Sepsis Event Note (H) - Evaluation Current Stage of Sepsis: Ruled out Assessment/Plan - Problem List (1) Abdominal pain Impression: The patient continues to have pain that begins near her navel, and radiates upward toward her chest, causing mild chest pressure. On exam, she has increased abdominal girth with a shinny appearance. Imaging was obtained which showed evidence of an ileus. Plan: Bowel rest, control pain. Qualifiers: Abdominal location: epigastric Qualified Code(s): R10.13 - Epigastric pain (2) Ileus Impression: A 2-view abdominal x-ray was taken which shows multiple small bowel dilated loops, indicating a post-op ileus. The patient is now on bowel rest and orders for an NG tube are in the computer. Plan: Bowel rest, encourage ambulation, control pain. Relistor to prevent worsening with narcotic treatment. (3) Appendicitis Impression: The patient is now post-op after a exploratory lap in which a necrotic appendix was removed by Dr. Rivas Redmond. Plan: Continue post op care, monitor surgical sites. Qualifiers: Appendicitis type: acute appendicitis Acute appendicitis type: with localized peritonitis Appendicitis gangrene presence: with gangrene Appendic itis perforation presence: with perforation Appendicitis abscess presence: with abscess Qualified Code(s): K35.31 - Acute appendicitis with localized peritonitis and gangrene, without perforation; K35.33 - Acute appendicitis with perforation and localized peritonitis, with abscess (4) Diabetes mellitus type 2, controlled Impression: The patient is prescribed Metformin at home that his now on hold. Plan: Continue SSI, blood sugar checks, NPO for now. Qualifiers: Diabetes mellitus complication status: with unspecified complications (5) Fatty liver Impression: This was listed in the patient's history and on exam this is apparent on top of her enlarged abdominal girth. Plan: Avoid alcohol, monitor LFTs, daily labs. (6) GERD (gastroesophageal reflux disease) Impression: The patient continues to have chest pressure symptoms despite being ruled out for cardiac causes. This is likely a consequence of her evolving ileus. Plan: Continue PPIs, monitor symptoms. Qualifiers: Esophagitis presence: esophagitis presence not specified Qualified Code(s): K21.9 - Gastro-esophageal reflux disease without esophagitis (7) Chronic constipation Impression: The patient states that prior to this hospital stay she has a difficult time with her bowels. She states that although she has never been officially tested, she suffers from IBS where she as diarrhea and constipation that alternates. She still has not moved her bowels since prior to admission, and consequently now has a post op ileus. Plan: Bowel rest, encourage activity, and monitor for improvement. (8) Tobacco dependence Impression: The patient continues to ask permission to leave the floor and was reported as being in the parking lot earlier today. She has been using the nicotine patch and has been warned to settle down and stay on the nursing unit since leaving the hospital is risky. Plan: Continue nicotine patch.
[2018-11-19] MEDS: KETOROLAC 30 MG/ML VIAL IVP SCH ×4 (00:13→17:04)
[2018-11-19] MEDS: SODIUM CHLORIDE FLUSH 0.9% 10 ML SYRINGE IVP SCH ×4 (00:15→16:55)
[2018-11-19] MEDS: ACETAMINOPHEN 1,000 MG/100 ML 100 ML IV SCH ×4 (02:39→20:27)
[2018-11-19] MEDS: PIPERACILLIN/TAZOBACTAM 3.375 GM in SODIUM CHLORIDE 0.9% MINIBAG 100 ML IV SCH ×4 (02:40→20:22)
[2018-11-19] MEDS: NS W/20 MEQ KCL 1,000 ML IV SCH ×2 (02:42→17:04)
[2018-11-19 05:14] LABS: MUDS CUTOFF CONCENTRATIONS CUTOFF CONC BELOW:
[2018-11-19 05:47] LABS: COCAINE SCREEN URINE NEGATIVE (NEGATIVE); METHAMPHETAMINES SCREEN, URINE NEGATIVE (NEGATIVE)
[2018-11-19 05:48] LABS: AMPHETAMINE SCREEN,URINE NEGATIVE (NEGATIVE); BENZODIAZEPINES SCREEN, URINE POSITIVE (NEGATIVE); METHADONE SCREEN, URINE NEGATIVE (NEGATIVE); OPIATE SCREEN, URINE POSITIVE (NEGATIVE); OXYCODONE SCREEN, URINE POSITIVE (NEGATIVE); PROPOXYPHENE SCREEN, URINE NEGATIVE (NEGATIVE); TRICYCLIC ANTIDEPRESSANT,URINE NEGATIVE (NEGATIVE)
[2018-11-19 06:10] LABS: BASOPHILS % (AUTO) 0.2 %; EOSINOPHILS % (AUTO) 0.1 %; HGB - HEMOGLOBIN 11.9 g/dL (12.0-16.0); LYMPHOCYTES # (AUTO) 0.6 10^3/uL (1.5-3.5); LYMPHOCYTES % (AUTO) 8.4 %; MEAN CORPUSCULAR HEMOGLOBIN 30.8 pg (27.0-31.0); MEAN CORPUSCULAR HGB CONC 32.9 g/dL (32.0-36.0); MEAN CORPUSCULAR VOLUME 93.5 fL (81.0-99.0); MEAN PLATELET VOLUME 7.3 fL (7.9-10.8); MONOCYTES # (AUTO) 0.4 10^3/uL (0.0-1.0); MONOCYTES % (AUTO) 5.7 %; NEUTROPHILS # (AUTO) 5.7 10^3/uL (1.5-6.6); NEUTROPHILS % (AUTO) 85.6 %; PLT - PLATELET COUNT 126 10^3/uL (130-450); RED BLOOD COUNT 3.85 10^6/uL (4.20-5.40); WHITE BLOOD COUNT 6.7 x10^3/uL (4.8-10.8)
[2018-11-19 06:28] LABS: ALBUMIN 2.5 g/dL (3.2-5.5); ALBUMIN/GLOBULIN RATIO 0.8 (1.0-2.2); CALCIUM 7.9 mg/dL (8.5-10.3); CREATININE 0.7 mg/dL (0.4-1.0); TOTAL PROTEIN 5.7 g/dL (6.7-8.2)
[2018-11-19] MEDS: INSULIN REGULAR HUMAN 100 UNIT/1 ML 10 ML MDV SUBQ SCH ×3 (06:28→17:04)
[2018-11-19] MEDS: PANTOPRAZOLE 40 MG VIAL IVP SCH (06:44)
[2018-11-19] MEDS ORDERED: POTASSIUM CHLORIDE INJ 40 MEQ in SODIUM CHLORIDE 0.9% 480 ML IV ONE (08:30)
[2018-11-19] MEDS: ENOXAPARIN 40 MG/0.4 ML SYRINGE SUBQ SCH (09:27)
[2018-11-19] MEDS: MORPHINE 2 MG/ML CARPUJECT IVP PRN ×5 (09:28→23:05)
[2018-11-19] MEDS: NICOTINE 7 MG PATCH TOP SCH (09:34)
--- NOTE | 2018-11-19 09:48 | XRAY Report ---
Reason: f/u postop ileus Procedure Date: 11/19/2018 Accession Number: [id number] / [id number] Procedure: XR - Abdomen 2 View X-Ray CPT Code: 75263 FULL RESULT: EXAM: ABDOMEN RADIOGRAPHY 2 VIEWS EXAM DATE: 11/19/2018. CLINICAL HISTORY: F/u postop ileus. COMPARISON: 11/18/2018. TECHNIQUE: AP supine and upright views. FINDINGS: Lung Bases: Lower lung atelectasis has improved. Bowel Gas Pattern: Decreased colon gas. Gas and air-fluid levels in the small bowel has slightly improved. Esophagogastric tube in the distal stomach, gastric distention has resolved. Free Air: None. Soft Tissues: No abnormal calcifications. Bones: Normal. IMPRESSION: Slight improvement in the appearance of small bowel ileus. Decrease gas and feces in the colon. Gastric distention has resolved, post placement of an esophagogastric tube. Distal end of the tube is in the gastric antrum. Improved lower lung atelectasis. RADIA
--- NOTE | 2018-11-19 12:55 | PROVIDER PROGRESS NOTE ---
Subjective - General Admit Date: 11/16/18 Procedure Date: 11/16/18 Post Op Days: 3 Procedure Performed: Laparoscopic appendectomy - Review of Systems Wound/Incisions: positive: Healing well, Drainage (Drain gauze had not been changed from operation and was soaked through with serous fluid. Removed.) Drain Type: Kishor Drain Output Description: serous Approximate mls Output: 190 mL so far today General: positive: No symptoms HEENT: positive: No symptoms Pulmonary: positive: No symptoms, Pleuritic chest pain Gastrointestinal: positive: Abdominal pain (improving), Flatus, Other (Hungry - would like coffee.). negative: Nausea, Vomiting, Difficulty swallowing, Diarrhea Genitourinary: positive: No symptoms Musculoskeletal: positive: No symptoms Skin: positive: No symptoms Psychiatric: positive: No symptoms, Anxiety (very anxious at times) All Other Systems: positive: Reviewed and negative Objective - Patient Data Reviewed Vital Signs: Yes Vital Signs: Vital Signs x48h Temp Pulse Resp BP Pulse Ox 11/19/18 08:12 36.6 C 98 16 117/70 93 11/19/18 07:01 37.1 C 99 16 109/71 99 Intake & Output: Intake and Output Totals x24h 11/17/18 11/18/18 11/19/18 23:59 23:59 23:59 Intake Total 5386 2723.673 6026.000 Output Total 1795 3140 1790 Balance 3591 -1342.779 690.000 - Lab Results Lab Results: 11/19/18 05:40 11/19/18 05:40 Other Lab Results: Lab Results x24hrs 11/19/18 11/19/18 11/19/18 Range/Units 11:14 06:09 05:40 WBC (4.8-10.8) x10^3/uL RBC (4.20-5.40) 10^6/uL Hgb (12.0-16.0) g/dL Hct (37.0-47.0) % MCV (81.0-99.0) fL MCH (27.0-31.0) pg MCHC (32.0-36.0) g/dL RDW (12.0-15.0) % Plt Count (130-450) 10^3/uL MPV (7.9-10.8) fL Neut # (Auto) (1.5-6.6) 10^3/uL Lymph # (Auto) (1.5-3.5) 10^3/uL [place] # (Auto) (0.0-1.0) 10^3/uL Eos # (Auto) (0.0-0.7) 10^3/uL Baso # (Auto) (0.0-0.1) 10^3/uL Absolute Nucleated RBC x10^3/uL Nucleated RBC % /100WBC Sodium (135-145) mmol/L Potassium (3.5-5.0) mmol/L Chloride (101-111) mmol/L Carbon Dioxide (21-32) mmol/L Anion Gap (6-13) BUN (6-20) mg/dL Creatinine (0.4-1.0) mg/dL Estimated GFR (MDRD) (>89) Glucose (70-100) mg/dL POC Whole Bld Glucose 99 110 H (70 - 100) mg/dL Calcium (8.5-10.3) mg/dL Total Bilirubin (0.2-1.0) mg/dL AST (10-42) IU/L ALT (10-60) IU/L Alkaline Phosphatase (42-121) IU/L Troponin I < 0.04 (<0.49) ng/mL Total Protein (6.7-8.2) g/dL Albumin (3.2-5.5) g/dL Globulin (2.1-4.2) g/dL Albumin/Globulin Ratio (1.0-2.2) Urine Opiates Screen (NEGATIVE) Ur Oxycodone Screen (NEGATIVE) Urine Methadone Screen (NEGATIVE) Ur Propoxyphene Screen (NEGATIVE) Ur Barbiturates Screen (NEGATIVE) Ur Tricyclics Screen (NEGATIVE) Ur Phencyclidine Scrn (NEGATIVE) Ur Amphetamine Screen (NEGATIVE) U Methamphetamines Scrn (NEGATIVE) U Benzodiazepines Scrn (NEGATIVE) Urine Cocaine Screen (NEGATIVE) U Cannabinoids Screen (NEGATIVE) 11/19/18 11/19/18 11/19/18 Range/Units 05:40 05:40 04:38 WBC 6.7 (4.8-10.8) x10^3/uL RBC 3.85 L (4.20-5.40) 10^6/uL Hgb 11.9 L (12.0-16.0) g/dL Hct 36.0 L (37.0-47.0) % MCV 93.5 (81.0-99.0) fL MCH 30.8 (27.0-31.0) pg MCHC 32.9 (32.0-36.0) g/dL RDW 14.0 (12.0-15.0) % Plt Count 126 L (130-450) 10^3/uL MPV 7.3 L (7.9-10.8) fL Neut # (Auto) 5.7 (1.5-6.6) 10^3/uL Lymph # (Auto) 0.6 L (1.5-3.5) 10^3/uL [place] # (Auto) 0.4 (0.0-1.0) 10^3/uL Eos # (Auto) 0.0 (0.0-0.7) 10^3/uL Baso # (Auto) 0.0 (0.0-0.1) 10^3/uL Absolute Nucleated RBC 0.01 x10^3/uL Nucleated RBC % 0.1 /100WBC Sodium 137 (135-145) mmol/L Potassium 2.8 L (3.5-5.0) mmol/L Chloride 102 (101-111) mmol/L Carbon Dioxide 25 (21-32) mmol/L Anion Gap 10.0 (6-13) BUN 12 (6-20) mg/dL Creatinine 0.7 (0.4-1.0) mg/dL Estimated GFR (MDRD) 89 (>89) Glucose 117 H (70-100) mg/dL POC Whole Bld Glucose (70 - 100) mg/dL Calcium 7.9 L (8.5-10.3) mg/dL Total Bilirubin 1.0 (0.2-1.0) mg/dL AST 16 (10-42) IU/L ALT 12 (10-60) IU/L Alkaline Phosphatase 59 (42-121) IU/L Troponin I (<0.49) ng/mL Total Protein 5.7 L (6.7-8.2) g/dL Albumin 2.5 L (3.2-5.5) g/dL Globulin 3.2 (2.1-4.2) g/dL Albumin/Globulin Ratio 0.8 L (1.0-2.2) Urine Opiates Screen POSITIVE H (NEGATIVE) Ur Oxycodone Screen POSITIVE H (NEGATIVE) Urine Methadone Screen NEGATIVE (NEGATIVE) Ur Propoxyphene Screen NEGATIVE (NEGATIVE) Ur Barbiturates Screen NEGATIVE (NEGATIVE) Ur Tricyclics Screen NEGATIVE (NEGATIVE) Ur Phencyclidine Scrn NEGATIVE (NEGATIVE) Ur Amphetamine Screen NEGATIVE (NEGATIVE) U Methamphetamines Scrn NEGATIVE (NEGATIVE) U Benzodiazepines Scrn POSITIVE H (NEGATIVE) Urine Cocaine Screen NEGATIVE (NEGATIVE) U Cannabinoids Screen NEGATIVE (NEGATIVE) 11/18/18 11/18/18 Range/Units 21:02 16:32 WBC (4.8-10.8) x10^3/uL RBC (4.20-5.40) 10^6/uL Hgb (12.0-16.0) g/dL Hct (37.0-47.0) % MCV (81.0-99.0) fL MCH (27.0-31.0) pg MCHC (32.0-36.0) g/dL RDW (12.0-15.0) % Plt Count (130-450) 10^3/uL MPV (7.9-10.8) fL Neut # (Auto) (1.5-6.6) 10^3/uL Lymph # (Auto) (1.5-3.5) 10^3/uL [place] # (Auto) (0.0-1.0) 10^3/uL Eos # (Auto) (0.0-0.7) 10^3/uL Baso # (Auto) (0.0-0.1) 10^3/uL Absolute Nucleated RBC x10^3/uL Nucleated RBC % /100WBC Sodium (135-145) mmol/L Potassium (3.5-5.0) mmol/L Chloride (101-111) mmol/L Carbon Dioxide (21-32) mmol/L Anion Gap (6-13) BUN (6-20) mg/dL Creatinine (0.4-1.0) mg/dL Estimated GFR (MDRD) (>89) Glucose (70-100) mg/dL POC Whole Bld Glucose 136 H 151 H (70 - 100) mg/dL Calcium (8.5-10.3) mg/dL Total Bilirubin (0.2-1.0) mg/dL AST (10-42) IU/L ALT (10-60) IU/L Alkaline Phosphatase (42-121) IU/L Troponin I (<0.49) ng/mL Total Protein (6.7-8.2) g/dL Albumin (3.2-5.5) g/dL Globulin (2.1-4.2) g/dL Albumin/Globulin Ratio (1.0-2.2) Urine Opiates Screen (NEGATIVE) Ur Oxycodone Screen (NEGATIVE) Urine Methadone Screen (NEGATIVE) Ur Propoxyphene Screen (NEGATIVE) Ur Barbiturates Screen (NEGATIVE) Ur Tricyclics Screen (NEGATIVE) Ur Phencyclidine Scrn (NEGATIVE) Ur Amphetamine Screen (NEGATIVE) U Methamphetamines Scrn (NEGATIVE) U Benzodiazepines Scrn (NEGATIVE) Urine Cocaine Screen (NEGATIVE) U Cannabinoids Screen (NEGATIVE) - Current Medications Current Medications: Current Medications Generic Name Dose Route Start Last Admin Trade Name Freq PRN Reason Stop Dose Admin Enoxaparin Sodium 40 mg 11/17/18 09:00 11/19/18 09:27 Lovenox SUBQ 40 mg DAILY RADHA Administration Piperacillin Sod/Tazobactam 100 mls @ 200 mls/hr 11/16/18 20:00 11/19/18 09:55 Sod 3.375 gm/ Sodium Chloride IV Infused Q6H RADHA Infusion Potassium Chloride/Sodium Chloride 1,000 mls @ 125 mls/hr 11/18/18 16:00 11/19/18 10:53 Normal Saline 0.9% W/20 Meq Kcl IV Infused .Q8H RADHA Infusion Acetaminophen 100 mls @ 400 mls/hr 11/18/18 20:00 11/19/18 09:05 Ofirmev IV Infused Q6H RADHA Infusion Insulin Human Regular 1 - 5 unit 11/19/18 06:00 11/19/18 06:28 Novolin R SUBQ Not Given Q6HR RADHA Protocol Ketorolac Tromethamine 30 mg 11/18/18 18:00 11/19/18 11:23 Toradol Inj (30mg) IVP 11/21/18 17:59 30 mg Q6HR RADHA Administration Lorazepam 0.5 mg 11/17/18 10:48 11/18/18 22:21 Ativan Inj (Vial) IVP 0.5 mg Q2H PRN Administration Anxiety Morphine Sulfate 2 mg 11/17/18 10:54 11/19/18 09:28 Morphine (Carpuject) IVP 2 mg Q3HR PRN Administration PAIN Nicotine 1 patch 11/17/18 11:00 11/19/18 09:34 Nicoderm TOP Not Given DAILY RADHA Ondansetron HCl 4 mg 11/16/18 18:28 11/18/18 14:04 Zofran Inj IVP 4 mg Q6H PRN Administration Nausea / Vomiting Pantoprazole Sodium 40 mg 11/18/18 16:00 11/19/18 06:44 Protonix IVP 40 mg QDAC RADHA Administration Sodium Chloride 10 ml 11/17/18 01:00 11/19/18 11:23 Normal Saline Flush 0.9% IVP 10 ml 0100,0900,1700 RADHA Administration Sodium Chloride 10 ml 11/16/18 18:28 11/18/18 02:46 Normal Saline Flush 0.9% IVP 10 ml PRN PRN Administration NEEDED PER PROVIDER ORDERS - Physical Exam Wound/Incisions: positive: Healing well, Drainage (Again drain site soaked through with serous fluid.) General Appearance: positive: No acute distress Eyes Bilateral: positive: No lid inflammation, Conjunctivae nml, No scleral icterus ENT: positive: No signs of dehydration Neck: positive: Trachea midline Respiratory: positive: Chest non-tender, No respiratory distress, Breath sounds nml Cardiovascular: positive: Regular rate & rhythm, No murmur Abdomen: positive: Nml bowel sounds, No distention, Tenderness (Mild and markedly improved from preoperatively - incisional mostly.) Skin: positive: Color nml Extremities: positive: Nml appearance Neurologic/Psychiatric: positive: Oriented x3, Motor nml, Sensation nml, Mood/affect nml ABX Reporting Has patient been on IV antibiotics over the past 48 hours?: Yes Impression/Plan - Problem List Problem List: D3 s/p laparoscopic appendectomy for perforated appendicitis. 1) FEN Start clears. NG removed. Patient instructed to stop taking po if nauseous or vomits. 2) ID Significant risk of infection - continue on IV antibiotics until we are sure that patient can tolerate oral. WBC normalized. No fever. 3) Pathology Pending. 4) Activity Walk as much as possible. Shower today. 5) DM Really appreciate all of Nely Alonso's help and input.
--- NOTE | 2018-11-19 13:34 | PROVIDER PROGRESS NOTE ---
Subjective - Prog Note Date Prog Note Date: 11/19/18 Prog Note Time: 13:30 - Subjective Pt reports feeling: Improved Subjective: Devora continues to ask to "go outside", and admits to much improvement since yesterday. She denies a worsening of her chest discomfort, a new cough, increased shortness of breath, vomiting, bowel movements, or a new rash. Current Medications - Current Medications Current Medications: Active Medications: Enoxaparin Sodium (Lovenox) 40 mg SUBQ DAILY RADHA Piperacillin Sod/Tazobactam (Sod 3.375 gm/ Sodium Chloride) 100 mls @ 200 mls /hr IV Q6H RADHA Potassium Chloride/Sodium Chloride (Normal Saline 0.9% W/20 Meq Kcl) 1,000 mls @ 125 mls/hr IV .Q8H RADHA Acetaminophen (Ofirmev) 100 mls @ 400 mls/hr IV Q6H RADHA Insulin Human Regular (Novolin R) 1 - 5 unit SUBQ Q6HR RADHA; Protocol Ketorolac Tromethamine (Toradol Inj (30mg)) 30 mg IVP Q6HR RADHA Lorazepam (Ativan Inj (Vial)) 0.5 mg IVP Q2H PRN Morphine Sulfate (Morphine (Carpuject)) 2 mg IVP Q3HR PRN Nicotine (Nicoderm) 1 patch TOP DAILY RADHA Ondansetron HCl (Zofran Inj) 4 mg IVP Q6H PRN Pantoprazole Sodium (Protonix) 40 mg IVP QDAC RADHA HOME meds: Pravastatin [Pravachol] 20 mg PO DAILY 11/14/18 Apple Cider Vinegar 2 tab PO BID 11/17/18 Cholecalciferol (Vitamin D3) [Vitamin D3] 1,000 unit PO DAILY 11/17/18 L.acid/L.casei/B.bif/B.kirti/Fos [Probiotic Blend Capsule] 1 cap PO DAILY 11/17/18 Metformin HCl [Metformin HCl ER] 1,000 mg PO QPM 11/17/18 Metformin HCl [Metformin HCl ER] 500 mg PO DAILY 11/17/18 Multivit-Min/Iron/Folic/Lutein [Multivitamin Women 50 Plus Tab] 1 tab PO DAILY 11/17/18 Oxycodone HCl/Acetaminophen [Percocet 5-325 mg Tablet] 1 - 2 tab PO Q6H PRN 11/17/18 Potassium Citrate [Urocit-K] 10 meq PO DAILY 11/17/18 RX: Biotin 5 mg PO DAILY 11/17/18 Senna [Senokot] 8.6 mg PO PRN 11/17/18 Objective - Vital Signs/Intake & Output Reviewed Vital Signs: Yes Vital Signs: Vital Signs x48h Temp Pulse Resp BP Pulse Ox 11/19/18 08:12 36.6 C 98 16 117/70 93 11/19/18 07:01 37.1 C 99 16 109/71 99 Intake & Output: Intake & Output 11/16/18 11/17/18 11/18/18 11/19/18 23:59 23:59 23:59 23:59 Intake Total 2555.417 5386 8426.732 2489.000 Output Total 220 1795 3140 1790 Balance 2335.417 3591 -1342.779 690.000 - Objective General Appearance: positive: Alert, Mild distress, Anxious Eyes Bilateral: positive: PERRL ENT: positive: Pharynx nml, No signs of dehydration Neck: positive: Thyroid nml, No JVD, Trachea midline Respiratory: positive: Chest non-tender, No respiratory distress, Other (scattered crackles in bilateral low lobes) Cardiovascular: positive: Regular rate & rhythm, No gallop, Tachycardia, Systolic murmur Peripheral Pulses: 1+ Radial (R), 1+ Radial (L) Abdomen: positive: Tenderness, Guarding, Hepatomegaly, Abnml bowel sounds, Other (rounded, soft) Back: positive: Nml inspection Skin: positive: No rash, Warm, Dry Extremities: positive: Non-tender, Full ROM, Nml appearance, No pedal edema Neurologic/Psychiatric: positive: Oriented x3, CN's nml (2-12), Motor nml, Sensation nml, Depressed mood/affect Reflexes: Bicep (R): 3+, Bicep (L): 3+ - Lab Results Fish Bones: 11/19/18 05:40 11/19/18 05:40 Other Labs: Lab Results x24hrs 11/19/18 11/19/18 11/19/18 Range/Units 11:14 06:09 05:40 WBC (4.8-10.8) x10^3/uL RBC (4.20-5.40) 10^6/uL Hgb (12.0-16.0) g/dL Hct (37.0-47.0) % MCV (81.0-99.0) fL MCH (27.0-31.0) pg MCHC (32.0-36.0) g/dL RDW (12.0-15.0) % Plt Count (130-450) 10^3/uL MPV (7.9-10.8) fL Neut # (Auto) (1.5-6.6) 10^3/uL Lymph # (Auto) (1.5-3.5) 10^3/uL Door # (Auto) (0.0-1.0) 10^3/uL Eos # (Auto) (0.0-0.7) 10^3/uL Baso # (Auto) (0.0-0.1) 10^3/uL Absolute Nucleated RBC x10^3/uL Nucleated RBC % /100WBC Sodium (135-145) mmol/L Potassium (3.5-5.0) mmol/L Chloride (101-111) mmol/L Carbon Dioxide (21-32) mmol/L Anion Gap (6-13) BUN (6-20) mg/dL Creatinine (0.4-1.0) mg/dL Estimated GFR (MDRD) (>89) Glucose (70-100) mg/dL POC Whole Bld Glucose 99 110 H (70 - 100) mg/dL Calcium (8.5-10.3) mg/dL Total Bilirubin (0.2-1.0) mg/dL AST (10-42) IU/L ALT (10-60) IU/L Alkaline Phosphatase (42-121) IU/L Troponin I < 0.04 (<0.49) ng/mL Total Protein (6.7-8.2) g/dL Albumin (3.2-5.5) g/dL Globulin (2.1-4.2) g/dL Albumin/Globulin Ratio (1.0-2.2) Urine Opiates Screen (NEGATIVE) Ur Oxycodone Screen (NEGATIVE) Urine Methadone Screen (NEGATIVE) Ur Propoxyphene Screen (NEGATIVE) Ur Barbiturates Screen (NEGATIVE) Ur Tricyclics Screen (NEGATIVE) Ur Phencyclidine Scrn (NEGATIVE) Ur Amphetamine Screen (NEGATIVE) U Methamphetamines Scrn (NEGATIVE) U Benzodiazepines Scrn (NEGATIVE) Urine Cocaine Screen (NEGATIVE) U Cannabinoids Screen (NEGATIVE) 11/19/18 11/19/18 11/19/18 Range/Units 05:40 05:40 04:38 WBC 6.7 (4.8-10.8) x10^3/uL RBC 3.85 L (4.20-5.40) 10^6/uL Hgb 11.9 L (12.0-16.0) g/dL Hct 36.0 L (37.0-47.0) % MCV 93.5 (81.0-99.0) fL MCH 30.8 (27.0-31.0) pg MCHC 32.9 (32.0-36.0) g/dL RDW 14.0 (12.0-15.0) % Plt Count 126 L (130-450) 10^3/uL MPV 7.3 L (7.9-10.8) fL Neut # (Auto) 5.7 (1.5-6.6) 10^3/uL Lymph # (Auto) 0.6 L (1.5-3.5) 10^3/uL Door # (Auto) 0.4 (0.0-1.0) 10^3/uL Eos # (Auto) 0.0 (0.0-0.7) 10^3/uL Baso # (Auto) 0.0 (0.0-0.1) 10^3/uL Absolute Nucleated RBC 0.01 x10^3/uL Nucleated RBC % 0.1 /100WBC Sodium 137 (135-145) mmol/L Potassium 2.8 L (3.5-5.0) mmol/L Chloride 102 (101-111) mmol/L Carbon Dioxide 25 (21-32) mmol/L Anion Gap 10.0 (6-13) BUN 12 (6-20) mg/dL Creatinine 0.7 (0.4-1.0) mg/dL Estimated GFR (MDRD) 89 (>89) Glucose 117 H (70-100) mg/dL POC Whole Bld Glucose (70 - 100) mg/dL Calcium 7.9 L (8.5-10.3) mg/dL Total Bilirubin 1.0 (0.2-1.0) mg/dL AST 16 (10-42) IU/L ALT 12 (10-60) IU/L Alkaline Phosphatase 59 (42-121) IU/L Troponin I (<0.49) ng/mL Total Protein 5.7 L (6.7-8.2) g/dL Albumin 2.5 L (3.2-5.5) g/dL Globulin 3.2 (2.1-4.2) g/dL Albumin/Globulin Ratio 0.8 L (1.0-2.2) Urine Opiates Screen POSITIVE H (NEGATIVE) Ur Oxycodone Screen POSITIVE H (NEGATIVE) Urine Methadone Screen NEGATIVE (NEGATIVE) Ur Propoxyphene Screen NEGATIVE (NEGATIVE) Ur Barbiturates Screen NEGATIVE (NEGATIVE) Ur Tricyclics Screen NEGATIVE (NEGATIVE) Ur Phencyclidine Scrn NEGATIVE (NEGATIVE) Ur Amphetamine Screen NEGATIVE (NEGATIVE) U Methamphetamines Scrn NEGATIVE (NEGATIVE) U Benzodiazepines Scrn POSITIVE H (NEGATIVE) Urine Cocaine Screen NEGATIVE (NEGATIVE) U Cannabinoids Screen NEGATIVE (NEGATIVE) 11/18/18 11/18/18 Range/Units 21:02 16:32 WBC (4.8-10.8) x10^3/uL RBC (4.20-5.40) 10^6/uL Hgb (12.0-16.0) g/dL Hct (37.0-47.0) % MCV (81.0-99.0) fL MCH (27.0-31.0) pg MCHC (32.0-36.0) g/dL RDW (12.0-15.0) % Plt Count (130-450) 10^3/uL MPV (7.9-10.8) fL Neut # (Auto) (1.5-6.6) 10^3/uL Lymph # (Auto) (1.5-3.5) 10^3/uL Door # (Auto) (0.0-1.0) 10^3/uL Eos # (Auto) (0.0-0.7) 10^3/uL Baso # (Auto) (0.0-0.1) 10^3/uL Absolute Nucleated RBC x10^3/uL Nucleated RBC % /100WBC Sodium (135-145) mmol/L Potassium (3.5-5.0) mmol/L Chloride (101-111) mmol/L Carbon Dioxide (21-32) mmol/L Anion Gap (6-13) BUN (6-20) mg/dL Creatinine (0.4-1.0) mg/dL Estimated GFR (MDRD) (>89) Glucose (70-100) mg/dL POC Whole Bld Glucose 136 H 151 H (70 - 100) mg/dL Calcium (8.5-10.3) mg/dL Total Bilirubin (0.2-1.0) mg/dL AST (10-42) IU/L ALT (10-60) IU/L Alkaline Phosphatase (42-121) IU/L Troponin I (<0.49) ng/mL Total Protein (6.7-8.2) g/dL Albumin (3.2-5.5) g/dL Globulin (2.1-4.2) g/dL Albumin/Globulin Ratio (1.0-2.2) Urine Opiates Screen (NEGATIVE) Ur Oxycodone Screen (NEGATIVE) Urine Methadone Screen (NEGATIVE) Ur Propoxyphene Screen (NEGATIVE) Ur Barbiturates Screen (NEGATIVE) Ur Tricyclics Screen (NEGATIVE) Ur Phencyclidine Scrn (NEGATIVE) Ur Amphetamine Screen (NEGATIVE) U Methamphetamines Scrn (NEGATIVE) U Benzodiazepines Scrn (NEGATIVE) Urine Cocaine Screen (NEGATIVE) U Cannabinoids Screen (NEGATIVE) - Diagnostic Imaging Diagnostic Imaging Results: positive: Final report reviewed Diagnostic Imaging Comments: EXAM: ABDOMEN RADIOGRAPHY 2 VIEWS EXAM DATE: 11/19/2018 IMPRESSION: Slight improvement in the appearance of small bowel ileus. Decrease gas and feces in the colon. Gastric distention has resolved, post placement of an esophagogastric tube. Distal end of the tube is in the gastric antrum. Improved lower lung atelectasis. ABX Reporting Has patient been on IV antibiotics over the past 48 hours?: Yes Sepsis Event Note (H) - Evaluation Current Stage of Sepsis: Ruled out Assessment/Plan - Problem List (1) Ileus Impression: Follow up imaging today shows an improvement in the ileus without resolution. Dr. Garza saw her today and removed the NG tube in hopes to allow for an advanced diet. Plan: Advance diet as tolerated, encourage ambulation, control pain. Relistor to prevent worsening with narcotic treatment. Consider gastro graffin contrast for lack of improvement if no resolution by tomorrow. (2) Abdominal pain Impression: The patient notes that her original abdominal pain is intermittent and is much less intense. The pain began near her navel, and radiates upward toward her chest, causing mild chest pressure. Imaging today shows an improvement in the ileus. Plan: Advance diet as tolerated, control pain and encourage ambulation on the nursing unit. Qualifiers: Abdominal location: epigastric Qualified Code(s): R10.13 - Epigastric pain (3) Chronic constipation Impression: The patient states that prior to this hospital stay she has a difficult time with her bowels. She states that although she has never been officially tested, she suffers from IBS where she as diarrhea and constipation that alternates. She still has not moved her bowels since prior to admission, and consequently now has a post op ileus. Today she continues to have only flatus and no BM. Plan: Bowel rest, encourage activity, and monitor for improvement. Consider Gastro graffin if no improvement. (4) Appendicitis Impression: The patient is now post-op after a exploratory lap in which a necrotic appendix was removed by Dr. Rivas Redmond. Her surgical sites show improvement without signs of infection. Plan: Continue post op care, monitor surgical sites. Qualifiers: Appendicitis type: acute appendicitis Acute appendicitis type: with localized peritonitis Appendicitis gangrene presence: with gangrene Append icitis perforation presence: with perforation Appendicitis abscess presence: with abscess Qualified Code(s): K35.31 - Acute appendicitis with localized peritonitis and gangrene, without perforation; K35.33 - Acute appendicitis with perforation and localized peritonitis, with abscess (5) Diabetes mellitus type 2, controlled Impression: The patient is prescribed Metformin at home that his now on hold. Blood sugars have been 99-186 today and she has not required any sliding scale coverage insulin. Plan: Continue SSI, blood sugar checks, advance diet as tolerated. Qualifiers: Diabetes mellitus complication status: with unspecified complications (6) Fatty liver Impression: This was listed in the patient's history and on exam this is apparent on top of her enlarged abdominal girth. Plan: Avoid alcohol, monitor LFTs, resume Metformin on discharge, daily labs. (7) GERD (gastroesophageal reflux disease) Impression: The patient continues to have chest pressure symptoms despite being ruled out for cardiac causes. This is likely a consequence of her increased abdominal girth. Plan: Continue PPIs, monitor symptoms. Qualifiers: Esophagitis presence: esophagitis presence not specified Qualified Code(s): K21.9 - Gastro-esophageal reflux disease without esophagitis (8) Tobacco dependence Impression: The patient continues to ask permission to leave the floor and was reported as being in the parking lot earlier today. She has been using the nicotine patch and has been warned to settle down and stay on the nursing unit since leaving the hospital is risky. She has been refusing her nicotine patch. Plan: Continue nicotine patch.
[2018-11-20] MEDS: SODIUM CHLORIDE FLUSH 0.9% 10 ML SYRINGE IVP SCH ×3 (00:18→06:11)
[2018-11-20] MEDS: KETOROLAC 30 MG/ML VIAL IVP SCH ×3 (00:18→12:09)
[2018-11-20] MEDS: MORPHINE 2 MG/ML CARPUJECT IVP PRN ×4 (02:07→16:47)
[2018-11-20] MEDS: NS W/20 MEQ KCL 1,000 ML IV SCH ×3 (02:07→11:38)
[2018-11-20] MEDS: PIPERACILLIN/TAZOBACTAM 3.375 GM in SODIUM CHLORIDE 0.9% MINIBAG 100 ML IV SCH ×3 (02:07→14:39)
[2018-11-20] MEDS: INSULIN REGULAR HUMAN 100 UNIT/1 ML 10 ML MDV SUBQ SCH ×3 (02:29→11:29)
[2018-11-20] MEDS: ACETAMINOPHEN 1,000 MG/100 ML 100 ML IV SCH ×2 (02:53→08:17)
[2018-11-20] MEDS: BENZONATATE 100 MG CAPSULE PO PRN ×2 (03:04→09:21)
[2018-11-20] MEDS: SODIUM CHLORIDE FLUSH 0.9% 10 ML SYRINGE IVP PRN ×5 (06:10→16:49)
[2018-11-20] MEDS: PANTOPRAZOLE 40 MG VIAL IVP SCH (06:10)
[2018-11-20 08:43] LABS: BASOPHILS % (AUTO) 0.1 %; EOSINOPHILS % (AUTO) 0.1 %; HGB - HEMOGLOBIN 11.4 g/dL (12.0-16.0); LYMPHOCYTES # (AUTO) 0.5 10^3/uL (1.5-3.5); LYMPHOCYTES % (AUTO) 9.8 %; MEAN CORPUSCULAR HEMOGLOBIN 31.1 pg (27.0-31.0); MEAN CORPUSCULAR VOLUME 91.5 fL (81.0-99.0); MEAN PLATELET VOLUME 6.5 fL (7.9-10.8); MONOCYTES # (AUTO) 0.4 10^3/uL (0.0-1.0); MONOCYTES % (AUTO) 7.5 %; NEUTROPHILS # (AUTO) 4.3 10^3/uL (1.5-6.6); NEUTROPHILS % (AUTO) 82.5 %; PLT - PLATELET COUNT 136 10^3/uL (130-450); RED BLOOD COUNT 3.65 10^6/uL (4.20-5.40); RED CELL DISTRIBUTION WIDTH 14.1 % (12.0-15.0); WHITE BLOOD COUNT 5.2 x10^3/uL (4.8-10.8)
[2018-11-20] MEDS: ENOXAPARIN 40 MG/0.4 ML SYRINGE SUBQ SCH (08:44)
[2018-11-20] MEDS: NICOTINE 7 MG PATCH TOP SCH (08:44)
[2018-11-20 08:54] LABS: ALBUMIN 2.7 g/dL (3.2-5.5); ALBUMIN/GLOBULIN RATIO 0.8 (1.0-2.2); BILIRUBIN,TOTAL 0.7 mg/dL (0.2-1.0); CREATININE 0.5 mg/dL (0.4-1.0); MAGNESIUM 1.6 mg/dL (1.7-2.8); PHOSPHORUS 2.2 mg/dL (2.5-4.6); TOTAL PROTEIN 6.1 g/dL (6.7-8.2)
[2018-11-20] MEDS ORDERED: LACTULOSE 10 GM /15 ML UDC PO SCH (09:00)
[2018-11-20] MEDS ORDERED: SALINE ENEMA 133 ML BOTTLE RC SCH (09:00)
[2018-11-20] MEDS ORDERED: ACETAMINOPHEN 325 MG TABLET PO PRN (13:05)
[2018-11-20] MEDS ORDERED: oxyCODONE 5 MG TABLET PO PRN (13:42)
[2018-11-20] MEDS ORDERED: METHYLNALTREXONE 12 MG/0.6 ML VIAL SUBQ ONE (13:54)
[2018-11-20] MEDS ORDERED: MAGNESIUM OXIDE 400 MG TABLET PO SCH (14:00)
--- NOTE | 2018-11-20 15:23 | PROVIDER PROGRESS NOTE ---
Subjective - Prog Note Date Prog Note Date: 11/20/18 Prog Note Time: 15:26 - Subjective Pt reports feeling: Improved Subjective: Devora states that her primary complaint today is not being home and her abdomen continues to feel tight. She states that her abdominal pain comes and goes and is located on either side of navel. She denies chest pain, chest pressure, nausea, vomiting, a rash, bleeding, diarrhea, or shortness of breath. She states she has been using her incentive spirometry frequently and walking the halls. Current Medications - Current Medications Current Medications: Active Medications: Acetaminophen (Tylenol) 650 mg PO Q4HR PRN Benzonatate (Tessalon) 100 mg PO TID PRN Enoxaparin Sodium (Lovenox) 40 mg SUBQ DAILY RADHA Piperacillin Sod/Tazobactam (Sod 3.375 gm/ Sodium Chloride) 100 mls @ 200 mls/hr IV Q6H RADHA Insulin Human Regular (Novolin R) 1 - 5 unit SUBQ Q6HR RADHA; Protocol Ketorolac Tromethamine (Toradol Inj (30mg)) 30 mg IVP Q6HR RADHA Lactulose (Enulose) 10 gm PO DAILY RADHA Lorazepam (Ativan Inj (Vial)) 0.5 mg IVP Q2H PRN Magnesium Oxide (Mag Ox) 800 mg PO DAILYWM RADHA Morphine Sulfate (Morphine (Carpuject)) 2 mg IVP Q3HR PRN Nicotine (Nicoderm) 1 patch TOP DAILY RADHA Ondansetron HCl (Zofran Inj) 4 mg IVP Q6H PRN Oxycodone HCl (Roxicodone) 5 mg PO Q4HR PRN Pantoprazole Sodium (Protonix) 40 mg PO QDAC [facility] HOME meds: Pravastatin [Pravachol] 20 mg PO DAILY 11/14/18 Apple Cider Vinegar 2 tab PO BID 11/17/18 Biotin 5 mg PO DAILY 11/17/18 Cholecalciferol (Vitamin D3) [Vitamin D3] 1,000 unit PO DAILY 11/17/18 L.acid/L.casei/B.bif/B.kirti/Fos [Probiotic Blend Capsule] 1 cap PO DAILY 11/17/18 Metformin HCl [Metformin HCl ER] 1,000 mg PO QPM 11/17/18 Metformin HCl [Metformin HCl ER] 500 mg PO DAILY 11/17/18 Multivit-Min/Iron/Folic/Lutein [Multivitamin Women 50 Plus Tab] 1 tab PO DAILY 11/17/18 Oxycodone HCl/Acetaminophen [Percocet 5-325 mg Tablet] 1 - 2 tab PO Q6H PRN 11/17/18 Potassium Citrate [Urocit-K] 10 meq PO DAILY 11/17/18 Senna [Senokot] 8.6 mg PO PRN PRN 11/17/18 Objective - Vital Signs/Intake & Output Reviewed Vital Signs: Yes Vital Signs: Vital Signs x48h Temp Pulse Resp BP Pulse Ox 11/20/18 07:48 37.1 C 97 18 142/75 H 96 Intake & Output: Intake & Output 11/17/18 11/18/18 11/19/18 11/20/18 23:59 23:59 23:59 23:59 Intake Total 5386 8449.747 0394.000 3224.000 Output Total 1795 3140 2090 2725 Balance 3591 -6773.515 1824.000 499.000 - Objective General Appearance: positive: Alert, Moderate distress, Anxious Eyes Bilateral: positive: PERRL ENT: positive: Pharynx nml, No signs of dehydration Neck: positive: Thyroid nml, No JVD, Trachea midline Respiratory: positive: Chest non-tender, No respiratory distress, Other (crackles to bilateral bases) Cardiovascular: positive: Regular rate & rhythm, No gallop, Systolic murmur Peripheral Pulses: 1+ Radial (R), 1+ Radial (L), 1+ Posterior tibialis (R), 1+ Posterior tibialis (L) Abdomen: positive: Guarding, Hepatomegaly, Abnml bowel sounds, Other (rounded, soft) Back: positive: Nml inspection Skin: positive: No rash, Warm, Dry Extremities: positive: Non-tender, Full ROM, Nml appearance, Pedal edema (trace, increased from yesterday to BLEs.) Neurologic/Psychiatric: positive: Oriented x3, CN's nml (2-12), Motor nml, Sensation nml, Depressed mood/affect (tearful at times related to her length of stay) Reflexes: Bicep (R): 3+, Bicep (L): 3+ - Lab Results Fish Bones: 11/20/18 08:35 11/20/18 08:35 Other Labs: Lab Results x24hrs 11/20/18 11/20/18 11/20/18 Range/Units 11:13 08:35 08:35 WBC (4.8-10.8) x10^3/uL RBC (4.20-5.40) 10^6/uL Hgb (12.0-16.0) g/dL Hct (37.0-47.0) % MCV (81.0-99.0) fL MCH (27.0-31.0) pg MCHC (32.0-36.0) g/dL RDW (12.0-15.0) % Plt Count (130-450) 10^3/uL MPV (7.9-10.8) fL Neut # (Auto) (1.5-6.6) 10^3/uL Lymph # (Auto) (1.5-3.5) 10^3/uL Bracken # (Auto) (0.0-1.0) 10^3/uL Eos # (Auto) (0.0-0.7) 10^3/uL Baso # (Auto) (0.0-0.1) 10^3/uL Absolute Nucleated RBC x10^3/uL Nucleated RBC % /100WBC Sodium 135 (135-145) mmol/L Potassium 3.7 (3.5-5.0) mmol/L Chloride 105 (101-111) mmol/L Carbon Dioxide 22 (21-32) mmol/L Anion Gap 8.0 (6-13) BUN 5 L (6-20) mg/dL Creatinine 0.5 (0.4-1.0) mg/dL Estimated GFR (MDRD) 131 (>89) Glucose 146 H (70-100) mg/dL POC Whole Bld Glucose 91 (70 - 100) mg/dL Lactic Acid 0.7 (0.5-2.2) mmol/L Calcium 8.0 L (8.5-10.3) mg/dL Phosphorus 2.2 L (2.5-4.6) mg/dL Magnesium 1.6 L (1.7-2.8) mg/dL Total Bilirubin 0.7 (0.2-1.0) mg/dL AST 21 (10-42) IU/L ALT 13 (10-60) IU/L Alkaline Phosphatase 71 (42-121) IU/L Total Protein 6.1 L (6.7-8.2) g/dL Albumin 2.7 L (3.2-5.5) g/dL Globulin 3.4 (2.1-4.2) g/dL Albumin/Globulin Ratio 0.8 L (1.0-2.2) 11/20/18 11/20/18 11/19/18 Range/Units 08:35 07:57 23:51 WBC 5.2 (4.8-10.8) x10^3/uL RBC 3.65 L (4.20-5.40) 10^6/uL Hgb 11.4 L (12.0-16.0) g/dL Hct 33.4 L (37.0-47.0) % MCV 91.5 (81.0-99.0) fL MCH 31.1 H (27.0-31.0) pg MCHC 34.0 (32.0-36.0) g/dL RDW 14.1 (12.0-15.0) % Plt Count 136 (130-450) 10^3/uL MPV 6.5 L (7.9-10.8) fL Neut # (Auto) 4.3 (1.5-6.6) 10^3/uL Lymph # (Auto) 0.5 L (1.5-3.5) 10^3/uL Bracken # (Auto) 0.4 (0.0-1.0) 10^3/uL Eos # (Auto) 0.0 (0.0-0.7) 10^3/uL Baso # (Auto) 0.0 (0.0-0.1) 10^3/uL Absolute Nucleated RBC 0.00 x10^3/uL Nucleated RBC % 0.0 /100WBC Sodium (135-145) mmol/L Potassium (3.5-5.0) mmol/L Chloride (101-111) mmol/L Carbon Dioxide (21-32) mmol/L Anion Gap (6-13) BUN (6-20) mg/dL Creatinine (0.4-1.0) mg/dL Estimated GFR (MDRD) (>89) Glucose (70-100) mg/dL POC Whole Bld Glucose 110 H 102 H (70 - 100) mg/dL Lactic Acid (0.5-2.2) mmol/L Calcium (8.5-10.3) mg/dL Phosphorus (2.5-4.6) mg/dL Magnesium (1.7-2.8) mg/dL Total Bilirubin (0.2-1.0) mg/dL AST (10-42) IU/L ALT (10-60) IU/L Alkaline Phosphatase (42-121) IU/L Total Protein (6.7-8.2) g/dL Albumin (3.2-5.5) g/dL Globulin (2.1-4.2) g/dL Albumin/Globulin Ratio (1.0-2.2) 11/19/18 11/19/18 Range/Units 19:23 17:01 WBC (4.8-10.8) x10^3/uL RBC (4.20-5.40) 10^6/uL Hgb (12.0-16.0) g/dL Hct (37.0-47.0) % MCV (81.0-99.0) fL MCH (27.0-31.0) pg MCHC (32.0-36.0) g/dL RDW (12.0-15.0) % Plt Count (130-450) 10^3/uL MPV (7.9-10.8) fL Neut # (Auto) (1.5-6.6) 10^3/uL Lymph # (Auto) (1.5-3.5) 10^3/uL Bracken # (Auto) (0.0-1.0) 10^3/uL Eos # (Auto) (0.0-0.7) 10^3/uL Baso # (Auto) (0.0-0.1) 10^3/uL Absolute Nucleated RBC x10^3/uL Nucleated RBC % /100WBC Sodium (135-145) mmol/L Potassium (3.5-5.0) mmol/L Chloride (101-111) mmol/L Carbon Dioxide (21-32) mmol/L Anion Gap (6-13) BUN (6-20) mg/dL Creatinine (0.4-1.0) mg/dL Estimated GFR (MDRD) (>89) Glucose (70-100) mg/dL POC Whole Bld Glucose 186 H 91 (70 - 100) mg/dL Lactic Acid (0.5-2.2) mmol/L Calcium (8.5-10.3) mg/dL Phosphorus (2.5-4.6) mg/dL Magnesium (1.7-2.8) mg/dL Total Bilirubin (0.2-1.0) mg/dL AST (10-42) IU/L ALT (10-60) IU/L Alkaline Phosphatase (42-121) IU/L Total Protein (6.7-8.2) g/dL Albumin (3.2-5.5) g/dL Globulin (2.1-4.2) g/dL Albumin/Globulin Ratio (1.0-2.2) ABX Reporting Has patient been on IV antibiotics over the past 48 hours?: Yes Sepsis Event Note (H) - Evaluation Current Stage of Sepsis: Ruled out Assessment/Plan - Problem List (1) Ileus Impression: Follow up imaging shows an improvement in the ileus without resolution. Dr. Garza removed the NG tube in hopes to allow for an advanced diet. Today, after a saline enema, she was able to move her bowels. Plan: Advance diet as tolerated, encourage ambulation, control pain. (2) Abdominal pain Impression: The patient notes that her original abdominal pain is intermittent and is much less intense. The pain began near her navel, and radiates upward toward her chest, causing mild chest pressure. Imaging showed an improvement in the ileus, but her abdominal pain remains her biggest complaint. I have resumed her oxycodone today. Plan: Advance diet as tolerated, control pain and encourage ambulation on the nursing unit. Qualifiers: Abdominal location: epigastric Qualified Code(s): R10.13 - Epigastric pain (3) Chronic constipation Impression: The patient states that prior to this hospital stay she has a difficult time with her bowels. She states that although she has never been officially tested, she suffers from IBS where she as diarrhea and constipation that alternates. She still has not moved her bowels since prior to admission, and consequently now has a post op ileus. Today she was able to move her bowels after a saline enema. Plan: Advance diet, encourage activity, and monitor for improvement. (4) Appendicitis Impression: The patient is now post-op after a exploratory lap in which a necrotic appendix was removed by Dr. Rivas Redmond. Her surgical sites show improvement without signs of infection. Plan: Continue post op care, monitor surgical sites. Qualifiers: Appendicitis type: acute appendicitis Acute appendicitis type: with localized peritonitis Appendicitis gangrene presence: with gangrene Appendicitis perforation presence: with perforation Appendicitis abscess presence: with abscess Qualified Code(s): K35.31 - Acute appendicitis with localized peritonitis and gangrene, without perforation; K35.33 - Acute appendicitis with perforation and localized peritonitis, with abscess (5) Diabetes mellitus type 2, controlled Impression: The patient is prescribed Metformin at home that his now on hold. Blood sugars have been 91-101 today and she has not required any sliding scale coverage insulin. Plan: Continue SSI, blood sugar checks, advance diet as tolerated. Qualifiers: Diabetes mellitus complication status: with unspecified complications (6) Fatty liver Impression: This was listed in the patient's history and on exam this is apparent on top of her enlarged abdominal girth. Plan: Avoid alcohol, monitor LFTs, resume Metformin on discharge, daily labs. (7) GERD (gastroesophageal reflux disease) Impression: The patient continues to have chest pressure symptoms despite being ruled out for cardiac causes. This is likely a consequence of her increased abdominal girth. Plan: Continue PPIs, now changed to PO, monitor symptoms. Qualifiers: Esophagitis presence: esophagitis presence not specified Qualified Code(s): K21.9 - Gastro-esophageal reflux disease without esophagitis (8) Tobacco dependence Impression: The patient continues to ask permission to leave the floor and was reported as being in the parking lot earlier today. She has been using the nicotine patch and has been warned to settle down and stay on the nursing unit since leaving the hospital is risky. She has been refusing her nicotine patch. Plan: Continue nicotine patch.
[2018-11-20 15:59] VITALS: BP 123/69
--- NOTE | 2018-11-20 16:27 | DISCHARGE SUMMARY ---
"Discharge Summary Admit Date: 11/16/18 Discharge Date: 11/20/18 Discharging Provider: Dr. Bridger Hayden Primary Care Provider: Rosita Carpenter Code Status: Attempt Resuscitation Condition at Discharge: Good Discharge Disposition: 01 Home, Self Care - DIAGNOSES Admission Diagnoses: Perforated appendicitis Discharge Diagnoses with Status of Each Condition: Removed - HPI History of Present Illness: 52 year old female presented to the ED with all the hallmark symptoms and signs of perforated appendicitis - Dr. Redmond was called and he expeditiously operated removing the appendix laparoscopically and irrigating out the abdomen and placing a drain. - CONSULTS | PROCEDURES Consultations: Dr. Rivas Redmond, Hospitalist service for aid with co-morbidities Procedures: Laparoscopic appendectomy, abdominal washout, culture, placement of drain - HOSPITAL COURSE Hospital Course: Uncomplicated. - ALLERGIES Allergies/Adverse Reactions: Allergies Allergy/AdvReac Type Severity Reaction Status Date / Time Sulfa (Sulfonamide Allergy Hives Verified 11/16/18 13:12 Antibiotics) lactose AdvReac GI Verified 11/16/18 13:12 - MEDICATIONS Home Medications: Ambulatory Orders Medication Instructions Recorded Confirmed Omeprazole 20 mg PO DAILY #30 capsule. 11/14/18 11/17/18 Ondansetron Odt [Zofran] 4 mg TL Q6H PRN #10 tablet 11/14/18 11/17/18 Pravastatin [Pravachol] 20 mg PO DAILY 11/14/18 11/17/18 Apple Cider Vinegar 2 tab PO BID 11/17/18 11/17/18 Biotin 5 mg PO DAILY 11/17/18 11/17/18 Cholecalciferol (Vitamin D3) 1,000 unit PO DAILY 11/17/18 11/17/18 [Vitamin D3] L.acid/L.casei/B.bif/B.kirti/Fos 1 cap PO DAILY 11/17/18 11/17/18 [Probiotic Blend Capsule] Metformin HCl [Metformin HCl ER] 1,000 mg PO QPM 11/17/18 11/17/18 Metformin HCl [Metformin HCl ER] 500 mg PO DAILY 11/17/18 11/17/18 Multivit-Min/Iron/Folic/Lutein 1 tab PO DAILY 11/17/18 11/17/18 [Multivitamin Women 50 Plus Tab] Oxycodone HCl/Acetaminophen 1 - 2 tab PO Q6H PRN 11/17/18 11/17/18 [Percocet 5-325 mg Tablet] Potassium Citrate [Urocit-K] 10 meq PO DAILY 11/17/18 11/17/18 Senna [Senokot] 8.6 mg PO PRN PRN 11/17/18 11/17/18 Home Medications Other | Comments: Patient will be prescribed [place] 5/325, Levofloxacin and Flagyl. Patient instructed to complete course of antibiotics. - PHYSICAL EXAM AT DISCHARGE General Appearance: positive: No acute distress Eyes Bilateral: positive: No lid inflammation, Conjunctivae nml, No scleral icterus ENT: positive: No signs of dehydration Neck: positive: Trachea midline. negative: Stiff neck Respiratory: positive: Chest non-tender, No respiratory distress, Breath sounds nml Cardiovascular: positive: Regular rate & rhythm, No murmur, No gallop Abdomen: positive: Nml bowel sounds, Tenderness (Only mild incisional.) Extremities: positive: Non-tender, Nml appearance Neurologic/Psychiatric: positive: Oriented x3, Motor nml, Sensation nml, Mood/affect nml - LABS Result Diagrams: 11/20/18 08:35 11/20/18 08:35 - SEPSIS Current Stage of Sepsis: Ruled out - FOLLOW UP Follow Up: Dr. Rivas Redmond in 7-10 days. Patient is to call office ([phone]) for drain removal when less than 60 mL/24 hours. - TIME SPENT Time Spent in Discharge (Minutes): 45 (Postoperative drain care, wound care, instructions and diet explained in detail. Patient is tolerating a diet, pain controlled, not currently smoking, afebrile and prescribed antibiotics will cover the cultured organisms.)"
--- NOTE | 2018-11-20 16:36 | Discharge Plan ---
Discharge Plan Disposition: Home, Self Care Condition: Good Prescriptions: Docusate Sodium 250Mg Capsule [Colace 250Mg Capsule] 250 mg PO DAILY #10 capsule HYDROcod/ACETAM 5/325 [[place] 5/325] 1 each PO Q4H #20 tablet levoFLOXacin [Levaquin] 500 mg PO DAILY #5 tablet metroNIDAZOLE [Flagyl] 250 mg PO Q8H #20 tablet Diet: Regular Activity Restrictions: No Restrictions (No lifting >15 pounds for 6 weeks.) Shower Restrictions: No Driving Restrictions: Yes (Not until cleared by Dr. Redmond) Weight Bearing: Full Weight Additional Instructions or Follow Up instructions: Call with ANY surgical questions or concerns. No Smoking: If you smoke, Please STOP! Call for help. Follow-up with: Rosita Carpenter ARNP [Primary Care Provider] - Rivas Redmond MD [Provider Admit Priv/Credential] -
[2018-11-20] MEDS ORDERED: INSULIN REGULAR HUMAN 100 UNIT/1 ML 10 ML MDV SUBQ SCH (17:00)
[2018-11-20] MEDS ORDERED: metroNIDAZOLE 250 MG TABLET PO SCH (17:00)
[2018-11-21] MEDS ORDERED: PANTOPRAZOLE 40 MG TABLET PO SCH (07:00)
[2018-11-21] MEDS ORDERED: levoFLOXacin 250 MG TABLET PO SCH (09:00)
== END 2018-11-20 17:40 | disposition home or self-care (01) | DRG 339 ==
LOC: ED 12:40 → SDS 16:40 → MS2 18:28
PROVIDERS: ADMIT Internal Medicine Gastroenterology; ATTEND Nurse Practitioner
PROC: 0DTJ4ZZ Resection of Appendix, Percutaneous Endoscopic Approach (ICD-10-PCS; principal; 2018-11-16 16:00)
DX: K35.33 Acute appendicitis with perforation, localized peritonitis, and gangrene, with abscess (principal); K86.2 Cyst of pancreas; K56.7 Ileus, unspecified; E11.9 Type 2 diabetes mellitus without complications; Z87.442 Personal history of urinary calculi; Z79.82 Long term (current) use of aspirin; Z79.84 Long term (current) use of oral hypoglycemic drugs; Z88.2 Allergy status to sulfonamides; F17.210 Nicotine dependence, cigarettes, uncomplicated; K21.9 Gastro-esophageal reflux disease without esophagitis; E78.00 Pure hypercholesterolemia, unspecified; G89.29 Other chronic pain; M54.9 Dorsalgia, unspecified; J32.9 Chronic sinusitis, unspecified; K76.0 Fatty (change of) liver, not elsewhere classified; K59.09 Other constipation; M85.80 Other specified disorders of bone density and structure, unspecified site; R07.9 Chest pain, unspecified; G89.18 Other acute postprocedural pain
CPT/HCPCS: 36415; 71045; 74019; 80053; 80306; 81001; 81003; 83036; 83605; 83690; 83735; 84100; 84484; 85025; 87040; 87086; 93005; 96361; 96365; 96368; 96375; 96376; 99284; 99285

== ENCOUNTER 2020-09-22 09:16 | Outpatient (CLI) | payer BC ==
[2020-09-22 14:32] LABS: BASOPHILS % (AUTO) 0.1 %; HGB - HEMOGLOBIN 14.8 g/dL (12.0-16.0); LYMPHOCYTES % (AUTO) 27.2 %; MEAN CORPUSCULAR HEMOGLOBIN 31.4 pg (27.0-31.0); MEAN CORPUSCULAR HGB CONC 32.5 g/dL (32.0-36.0); MEAN CORPUSCULAR VOLUME 96.6 fL (81.0-99.0); MEAN PLATELET VOLUME 10.8 fL (7.9-10.8); MONOCYTES # (AUTO) 0.4 10^3/uL (0.0-1.0); MONOCYTES % (AUTO) 5.8 %; NEUTROPHILS # (AUTO) 4.9 10^3/uL (1.5-6.6); NEUTROPHILS % (AUTO) 66.6 %; PLT - PLATELET COUNT 127 10^3/uL (130-450); RED BLOOD COUNT 4.71 10^6/uL (4.20-5.40); RED CELL DISTRIBUTION WIDTH 12.9 % (12.0-15.0); WHITE BLOOD COUNT 7.4 x10^3/uL (4.8-10.8)
[2020-09-22 14:47] LABS: HEMOGLOBIN A1c% 8.8 % (4.27-6.07)
[2020-09-22 14:48] LABS: ALBUMIN 3.9 g/dL (3.2-5.5); ALKALINE PHOSPHATASE 103 IU/L (42-121); ALT ALANINE AMINOTRANSFERASE 48 IU/L (10-60); AST ASPARTATE AMINOTRANSFERASE 31 IU/L (10-42); BILIRUBIN,TOTAL 0.5 mg/dL (0.2-1.0); BUN - BLOOD UREA NITROGEN 15 mg/dL (6-20); CALCIUM 9.2 mg/dL (8.5-10.3); CARBON DIOXIDE - CO2 25 mmol/L (21-32); CHLORIDE 100 mmol/L (101-111); CHOL/HDL RATIO 7.5 (<4.4); CHOLESTEROL 263 mg/dL; CREATININE 0.5 mg/dL (0.4-1.0); GLUCOSE 221 mg/dL (70-100); HDL CHOLESTEROL 35 mg/dL; SODIUM 136 mmol/L (135-145); TOTAL PROTEIN 7.7 g/dL (6.7-8.2)
[2020-09-22 14:53] LABS: CREATININE,URINE 35.1 mg/dL; MICROALBUM/CREATININE RATIO,UR 863.2 ug/mg (<30.0); MICROALBUMIN,URINE 30.3 mg/dL (0-300.0)
[2020-09-22 15:37] LABS: LDL CHOLESTEROL,DIRECT 136 mg/dL; LDLD/HDL RATIO 3.9 (<4.4)
== END 2020-09-22 09:17 | disposition home or self-care (01) ==
LOC: LAB.S 09:16
PROVIDERS: ATTEND Registered Nurse
DX: J44.9 Chronic obstructive pulmonary disease, unspecified (principal); E78.5 Hyperlipidemia, unspecified; E11.9 Type 2 diabetes mellitus without complications; F41.9 Anxiety disorder, unspecified; F32.9 Major depressive disorder, single episode, unspecified; Z72.0 Tobacco use
CPT/HCPCS: 36415; 80053; 80061; 82043; 82570; 83036; 83721; 84443; 85025

== ENCOUNTER 2021-07-03 08:00 | Outpatient (CLI) | payer BC ==
--- NOTE | 2021-07-03 17:12 | XRAY Report ---
PROCEDURE: Abdomen 2 View X-Ray INDICATIONS: ACUTE ABDOMEN PAIN, RIGHT FLANK PAIN TECHNIQUE: 4 views of the abdomen were acquired. COMPARISON: 11/19/2018 and 11/18/2018 FINDINGS: Surgical changes and devices: None. Bowel: No pneumoperitoneum. The bowel gas pattern is normal. Soft tissues: No masses; visualized solid organ contours appear normal in size. No suspicious abdom inal calcifications. Bones: No suspicious bony abnormalities. IMPRESSION: No evidence of bowel obstruction or gross free air. No gross renal calcification is seen . Reviewed by: Arnulfo Rios MD on 07/03/2021 5:11 PM PDT Approved by: Arnulfo Rios MD on 07/03/2021 5:11 PM PDT Station ID: [id number]
== END 2021-07-03 23:59 | disposition home or self-care (01) ==
LOC: DI.S 08:00
PROVIDERS: ATTEND Physician Assistant Medical
DX: R10.9 Unspecified abdominal pain (principal)
CPT/HCPCS: 87086

== ENCOUNTER 2021-07-03 16:09 | Outpatient (CLI) | payer BC ==
[2021-07-03 20:01] LABS: CALCIUM 9.3 mg/dL (8.5-10.3); CREATININE 0.5 mg/dL (0.4-1.0); POTASSIUM 3.6 mmol/L (3.5-5.0)
[2021-07-03 20:12] LABS: CREATININE,URINE < 13.0 mg/dL; MICROALBUM/CREATININE RATIO,UR 707.7 ug/mg (<30.0); MICROALBUMIN,URINE 9.2 mg/dL (0-300.0)
[2021-07-03 20:41] LABS: ESTIMATED AVERAGE GLUCOSE 171 mg/dL (70-100); HEMOGLOBIN A1c% 7.6 % (4.27-6.07)
== END 2021-07-03 16:10 | disposition home or self-care (01) ==
LOC: LAB.S 16:09
PROVIDERS: ATTEND Registered Nurse
DX: E11.8 Type 2 diabetes mellitus with unspecified complications (principal); R10.9 Unspecified abdominal pain
CPT/HCPCS: 36415; 80048; 82043; 82570; 83036

== ENCOUNTER 2021-11-18 08:31 | Outpatient (CLI) | payer BC ==
[2021-11-18 16:03] LABS: CHOL/HDL RATIO 5.2 (<4.4); CHOLESTEROL 209 mg/dL; HDL CHOLESTEROL 40 mg/dL; LDL CHOLESTEROL,CALCULATED 128 mg/dL; LDL/HDL RATIO 3.2 (<4.4); TRIGLYCERIDES 204 mg/dL; VLDL CHOLESTEROL 41 mg/dL
[2021-11-18 18:49] LABS: ESTIMATED AVERAGE GLUCOSE 137 mg/dL (70-100); HEMOGLOBIN A1c% 6.4 % (4.27-6.07)
== END 2021-11-18 08:32 | disposition home or self-care (01) ==
LOC: LAB.S 08:31
PROVIDERS: ATTEND Nurse Practitioner
DX: E11.9 Type 2 diabetes mellitus without complications (principal)
CPT/HCPCS: 36415; 80061; 83036; 83721

== ENCOUNTER 2022-02-09 08:00 | Outpatient (CLI) | payer BC ==
--- NOTE | 2022-02-09 16:08 | XRAY Report ---
PROCEDURE: Shoulder 3 View LT INDICATIONS: PAIN IN LEFT SHOULDER TECHNIQUE: 3 views of the shoulder were acquired. COMPARISON: None. FINDINGS: Bones: Nondisplaced transverse fracture through the proximal humerus. Articular surface is preserved. Normal bone mineralization. Soft tissues: No suspicious soft tissue calcifications. IMPRESSION: Nondisplaced proximal humeral fracture Reviewed by: Jake Cuevas MD on 02/09/2022 3:06 PM [facility]AM[facility] Approved by: Jake Cuevas MD on 02/09/2022 3:06 PM YAMILETH Station ID: [id number]
== END 2022-02-09 23:59 | disposition home or self-care (01) ==
LOC: DI.S 08:00
PROVIDERS: ATTEND Registered Nurse
DX: S42.202A Unspecified fracture of upper end of left humerus, initial encounter for closed fracture (principal)

== ENCOUNTER 2022-02-14 09:15 | Outpatient (CLI) | payer BC ==
--- NOTE | 2022-02-17 08:49 | XRAY Report ---
PROCEDURE: Shoulder 3 View LT INDICATIONS: SHOULDER FRACTURE TECHNIQUE: Views of the left shoulderwere acquired. COMPARISON: None. FINDINGS: Bones: Comminuted fracture of the humeral head and neck. Soft tissues: No suspicious soft tissue calcifications. IMPRESSION: Comminuted fracture of the left humeral head and neck. Reviewed by: Sudheer Gonsalez on 02/17/2022 8:48 AM PDT Approved by: Sudheer Gonsalez on 02/17/2022 8:48 AM PDT Station ID: [id number]
== END 2022-02-14 23:59 | disposition home or self-care (01) ==
LOC: DI.WOS 09:15
PROVIDERS: ATTEND Physician Assistant
DX: S42.252A Displaced fracture of greater tuberosity of left humerus, initial encounter for closed fracture (principal)

== ENCOUNTER 2022-03-18 06:00 | Outpatient (CLI) | payer BC ==
--- NOTE | 2022-03-18 16:38 | XRAY Report ---
PROCEDURE: Shoulder 2 View LT INDICATIONS: SHOULDER PAIN TECHNIQUE: 2 views of the shoulder were acquired. COMPARISON: 4 views of the left shoulder dated 02/14/2022 FINDINGS: Bones: Callus is visualized at the left humeral tuberosity fracture. Fracture fragments are in anatom ic alignment. Soft tissues: No suspicious soft tissue calcifications. IMPRESSION: Partial interval healing of the left humeral tuberosity fracture. Reviewed by: Sharron Appiah MD on 03/18/2022 4:36 PM PDT Approved by: Sharron Appiah MD on 03/18/2022 4:36 PM PDT Station ID: [id number]
== END 2022-03-18 23:59 | disposition home or self-care (01) ==
LOC: DI.WOS 06:00
PROVIDERS: ATTEND Orthopaedic Surgery
DX: S42.225D 2-part nondisplaced fracture of surgical neck of left humerus, subsequent encounter for fracture with routine healing (principal)

== ENCOUNTER 2022-12-08 07:04 | Outpatient (CLI) | payer BC ==
[2022-12-08 20:56] LABS: ESTIMATED AVERAGE GLUCOSE 117 mg/dL (70-100); HEMOGLOBIN A1c% 5.7 % (4.27-6.07)
== END 2022-12-08 07:05 | disposition home or self-care (01) ==
LOC: LAB.S 07:04
PROVIDERS: ATTEND Registered Nurse
DX: E11.39 Type 2 diabetes mellitus with other diabetic ophthalmic complication (principal)
CPT/HCPCS: 36415; 83036

== ENCOUNTER 2024-02-12 10:10 | Outpatient (CLI) | payer BC ==
[2024-02-12 15:12] LABS: BASOPHILS % (AUTO) 0.2 %; HCT - HEMATOCRIT 45.7 % (37.0-47.0); HGB - HEMOGLOBIN 14.6 g/dL (12.0-16.0); LYMPHOCYTES # (AUTO) 1.1 10^3/uL (1.5-3.5); LYMPHOCYTES % (AUTO) 22.6 %; MEAN CORPUSCULAR HEMOGLOBIN 33.5 pg (27.0-31.0); MEAN CORPUSCULAR HGB CONC 31.9 g/dL (32.0-36.0); MEAN CORPUSCULAR VOLUME 104.8 fL (81.0-99.0); MEAN PLATELET VOLUME 10.4 fL (7.9-10.8); MONOCYTES # (AUTO) 0.3 10^3/uL (0.0-1.0); MONOCYTES % (AUTO) 6.8 %; NEUTROPHILS # (AUTO) 3.4 10^3/uL (1.5-6.6); NEUTROPHILS % (AUTO) 70.2 %; PLT - PLATELET COUNT 103 10^3/uL (130-450); RED BLOOD COUNT 4.36 10^6/uL (4.20-5.40); RED CELL DISTRIBUTION WIDTH 13.2 % (12.0-15.0); WHITE BLOOD COUNT 4.9 x10^3/uL (4.8-10.8)
[2024-02-12 15:44] LABS: ALBUMIN 4.4 g/dL (3.2-5.5); ALBUMIN/GLOBULIN RATIO 1.4 (1.0-2.2); ALKALINE PHOSPHATASE 76 IU/L (42-121); ALT ALANINE AMINOTRANSFERASE 40 IU/L (10-60); AST ASPARTATE AMINOTRANSFERASE 59 IU/L (10-42); BILIRUBIN,TOTAL 0.6 mg/dL (0.2-1.0); BUN - BLOOD UREA NITROGEN 11 mg/dL (6-20); CARBON DIOXIDE - CO2 28 mmol/L (21-32); CHLORIDE 103 mmol/L (101-111); CHOL/HDL RATIO 3.7 (<4.4); CHOLESTEROL 209 mg/dL; CREATININE 0.6 mg/dL (0.6-1.3); GFR - MDRD 103 (>89); GLUCOSE 112 mg/dL (74-104); HDL CHOLESTEROL 56 mg/dL; LDL CHOLESTEROL,CALCULATED 119 mg/dL; LDL/HDL RATIO 2.1 (<4.4); POTASSIUM 4.1 mmol/L (3.5-4.5); SODIUM 137 mmol/L (135-145); TOTAL PROTEIN 7.5 g/dL (6.4-8.9); TRIGLYCERIDES 172 mg/dL (48-352); VLDL CHOLESTEROL 34 mg/dL
[2024-02-12 15:55] LABS: THYROID STIMULATING HORMONE 1.53 uIU/mL (0.34-5.60)
== END 2024-02-12 10:11 | disposition home or self-care (01) ==
LOC: LAB.S 10:10
PROVIDERS: ATTEND Registered Nurse
DX: E78.5 Hyperlipidemia, unspecified (principal); Z79.899 Other long term (current) drug therapy; Z13.29 Encounter for screening for other suspected endocrine disorder
CPT/HCPCS: 36415; 80053; 80061; 83721; 84443; 85025